=== PATIENT | female | born 1960 | race American Indian/Alaskan Native ===

== ENCOUNTER 2019-10-15 14:24 | Inpatient (IN) | payer OTHER ==
[2019-10-15 14:52] LABS: Basophils # (Auto) 0.1 K/mm3 (0.0-0.1); Basophils % (Auto) 0.8 % (0.0-1.8); Eosinophils # (Auto) 0.1 K/mm3 (0.0-0.4); Hematocrit 39.5 % (30.3-42.9); Hemoglobin 13.3 gm/dl (10.1-14.3); Lymphocytes # (Auto) 2.6 K/mm3 (1.2-5.4); Mean Corpuscular HGB Conc 34 % (30-34); Mean Corpuscular Volume 94 fl (79-97); Monocytes # (Auto) 0.5 K/mm3 (0.0-0.8); Monocytes % (Auto) 7.4 % (0.0-7.3); Platelet Count 356 K/mm3 (140-440); Red Blood Count 4.21 M/mm3 (3.65-5.03); Red Cell Distribution Width 17.6 % (13.2-15.2)
--- NOTE | 2019-10-15 14:52 | Emergency Department Report ---
ED Neuro Deficit HPI - General Chief Complaint: Neuro Symptoms/Deficit Stated Complaint: RIGHT SIDE WEAKNESS Time Seen by Provider: 10/15/19 14:33 Source: patient Mode of arrival: Wheelchair Limitations: Physical Limitation - History of Present Illness Initial Comments: [facility] Tele[facility]urology Consult Services TeleStroke Metrics: LKW: 0500 Door Time: 1424 [facility] Contacted: 1426 [facility] at Bedside: 1431 NIHSS: Decision on Alteplase: Not to give as her last known well time is greater than 4.5 hours prior to her presentation. Interventional Candidate: Not a candidate as her symptoms are not consistent with a large vessel proximal occlusion. Chief Complaint: Right-sided weakness HPI: Asked to see this patient in emergent telemedicine consultation utilizing interactive audio and video technologies. Consultation was performed with assistance of ancillary / medical staff at bedside. Verbal consent to perform the examination with telemedicine was obtained. Patient agreed to proceed with the consultation for acute stroke protocol. 59-year-old right-handed -[place] female who was brought to the emergency room by her for right-sided weakness. Patient takes a baby aspirin. She has never had a stroke or TIA before. Patient got up early this morning. Then around 5 AM, she noted having problems grabbing things with her right hand and arm. She also noted some right leg heaviness as well. She has never had symptoms like this before. She denies any associated neck pain or chest pain. No headaches. Patient checked her blood pressure later on in the day and it was elevated. She decided to come to the emergency room due to her persistent right-sided symptoms and elevated blood pressures. PMH: Hypertension and asthma SOC: Negative x3. Patient is . FMH: Negative for stroke. ROS: 13 point review of systems were reviewed with the patient, and are all negative with the exception of the aforementioned in the history of present illness. VS: Temperature 98 F, pulse 99, respirations 16, blood pressure 155/91, oxygen saturation 100% Exam: Patient is in no apparent distress. Patient appears as stated age. No obvious acute respiratory or cardiac distress. Patient is well groomed and well-nourished. 1a- LOC: Keenly responsive - 0 1b- LOC questions: Answers both questions correctly - 0 1c- LOC commands- Performs both tasks correctly- 0 2- Gaze: Normal; no gaze paresis or gaze deviation - 0 3- Visual Taylor: normal, no Visual field deficit - 0 4- Facial movements: right facial palsy - 1 5- Upper limb motor right arm drift - 1 6- Lower limb motor right leg drift - 1 7- Limb Coordination: absent ataxia - 0 8- Sensory: right sensory loss - 1 9- Language - No aphasia - 0 10- Speech - No dysarthria - 0 11- Neglect / Extinction - none found - 0 NIHSS score: 4 Diagnostic Data: CT of the head showed no acute intracranial hemorrhage, mass, or large territory stroke Medical Data Reviewed: 1.Data?reviewed include clinical labs, radiology,?and medical tests; 2.Tests?results discussed w/performing or interpreting physician; 3.Obtaining/reviewing old medical records; 4.Obtaining?case history from another source; 5.Independent?review of image, tracing, or specimen. Medical Decision Making: - Extensive number of diagnosis or management options are considered below. - Extensive amount of complex data reviewed. - High risk of complication and/or morbidity or mortality are associated with differential diagnostic considerations below. - There may be?uncertain?outcome and increased probability of prolonged functional impairment or high probability of severe prolonged functional impairment associated with some of these differential diagnosis. Differential Diagnosis for Stroke: 1.?Cardioembolic?stroke 2. Small vessel disease/lacune 3. Thromboembolic, [id number] mechanism 4.?Hypercoagulable?state-related infarct 5. Transient ischemic attack 6. Thrombotic mechanism, large artery disease Assessment: 1. Probable acute right MCA subcortical stroke 2. Hypertension 3. Asthma Recommendations: Patient can be admitted to the hospital for further work-up of her symptoms Maintain the patient on a baby aspirin. Can give her a Plavix load of 300 mg x 1, and maintain her 75 mg daily thereafter Start her on a statin as well Allow permissive hypertension Check MRI brain without contrast to rule out any acute intracranial process Check MRA of the head and neck to better evaluate her intracranial and extracranial blood vessels Check echocardiogram to gauge her cardiac function Maintain the patient on telemetry to look for paroxysmal atrial fibrillation Check hemoglobin A1c and lipid panel Consult PT, OT, and ST Continue supportive care Plan of care was discussed with the patient Thank you for allowing [facility] to participate in the care of your patient. Please call me, Dr. Tee, with any questions at [phone]. Case discussed with the ER staff and the ER provider. Critical Care notation: I was called to see this critical patient emergently. I personally evaluated this critical patient for acute stroke evaluation, and determining their eligibility for IV Alteplase and interventional therapies. I have spent approximately 14 minutes with the patient, including time at bedside, time discussing the case with other physicians, reviewing plan of care, and time independently reviewing the records and scans. - Related Data Allergies/Adverse Reactions: Allergies Allergy/AdvReac Type Severity Reaction Status Date / Time No Known Allergies Allergy Unverified 08/17/13 08:12 ED Review of Systems ROS: Stated complaint: RIGHT SIDE WEAKNESS Other details as noted in HPI ED Past Medical Hx - Past Medical History Hx Hypertension: Yes Hx Asthma: Yes - Surgical History Past Surgical History?: No ED Neuro Physical Exam - General Limitations: Physical Limitation Suspected Stroke: No ED Course Vital Signs 10/15/19 14:27 Temperature 98.0 F Pulse Rate 99 H Respiratory 16 Rate Blood Pressure 155/91 O2 Sat by Pulse 100 Oximetry Critical care attestation.: If time is entered above; I have spent that time in minutes in the direct care of this critically ill patient, excluding procedure time. ED Disposition Clinical Impression: Stroke Disposition: [id number] OP ADMIT IP TO THIS HOSP Is pt being admited?: Yes Does the pt Need Aspirin: Yes Condition: Stable
--- NOTE | 2019-10-15 14:54 | Cat Scan Report ---
NONENHANCED CT SCAN OF THE BRAIN: INDICATION: neuro deficits <6hrs or sx present upon awakening. TECHNIQUE: Routine CT head without contrast. Sagittal and coronal reformatted images were obtained. A ll CT scans at this location are performed using CT dose reduction for ALARA by means of automated ex posure control. COMPARISON: None. FINDINGS: BRAIN / INTRACRANIAL CONTENTS: Hemorrhage:No intracranial hemorrhage; no subarachnoid hemorrhage Stroke mimics: No subdural or epidural hematoma or space taking lesion Acute/subacute territorial infarction: Sylvester-white matter interface: No blurring; normal Insular cortex: Normal Basal ganglia: Normal Wedge shaped parenchymal low density area: Not present Cortical sulci: Not effaced Lacunar infarctions: None Vasculopathy: Dense middle cerebral artery sign: Not present Internal carotid artery terminus: Normal Basilar artery:Normal Middle cerebral artery branches in the sylvian fissure (Dot sign): Normal Calcified embolus: Not present ASPECT score: 10 Chronic lesions:None White matter: Periventricular and deep hemispheric white matter are normal Craniocervical junction:No significant abnormality Orbits:No significant abnormality Paranasal sinuses/mastoids: One of the left posterior ethmoid air cells is opacified; incidental oste susan in the left ethmoid labyrinth Additional findings: None IMPRESSION: No intracerebral hemorrhage No stroke mimics No CT findings to suggest acute/subacute ischemia This exam was performed as part of a code stroke protocol. The exam was completed at [facility] on 10/15/2019 1:45 PM. The exam was reviewed at 1:48 PM [place] daylight saving [place] was notified at 1:50 PM. Signer Name: Lamont Reyes MD Signed: 10/15/2019 2:50 PM Workstation Name: [id number]
[2019-10-15 15:01] LABS: INR 1.15 (0.87-1.13)
[2019-10-15 15:02] LABS: Partial Thromboplastin Time 29.8 Sec. (24.2-36.6)
[2019-10-15 15:03] LABS: Thrombin Time 16.7 Sec. (15.1-19.6)
[2019-10-15 15:05] LABS: BUN/Creatinine Ratio 10; Blood Urea Nitrogen 8 mg/dL (7-17); Calcium 9.9 mg/dL (8.4-10.2); Hemolysis Index 7
[2019-10-15] MEDS ORDERED: POTASSIUM CHLORIDE ER 20 MEQ TAB PO ONE (15:09)
--- NOTE | 2019-10-15 15:19 | Emergency Department Report ---
HPI - General Chief Complaint: Neuro Symptoms/Deficit Time Seen by Provider: 10/15/19 14:33 - HPI HPI: This is a 59-year-old female who presents to the emergency department via EMS with complaint of right-sided weakness and a "heaviness", as well as a slight right-sided facial droop, that started about 5 AM this morning. The patient says that she did realize she was having the symptoms but did not come in immediately as she thought "I do not usually get sick" and decided that maybe she just needed something to eat. However the symptoms did not improve and she eventually called 911. She denies any headache, fever, vision change, slurred speech, chest pain or shortness of breath. She has a past medical history of asthma and hypertension. She denies any tobacco use but will occasionally smoke marijuana. No recent travel or sick contacts at home. ED Past Medical Hx - Past Medical History Hx Hypertension: Yes Hx Asthma: Yes - Surgical History Past Surgical History?: No ED Review of Systems ROS: Stated complaint: RIGHT SIDE WEAKNESS Other details as noted in HPI Comment: All other systems reviewed and negative Constitutional: denies: chills, fever Eyes: denies: eye pain, vision change ENT: denies: ear pain, throat pain Respiratory: denies: cough, shortness of breath Cardiovascular: denies: chest pain, palpitations Gastrointestinal: denies: abdominal pain, vomiting Genitourinary: denies: dysuria, discharge Musculoskeletal: denies: back pain, arthralgia Skin: denies: rash, lesions Neurological: weakness, numbness Physical Exam - Physical Exam Vital Signs: Vital Signs 10/15/19 14:27 Temperature 98.0 F Pulse Rate 99 H Respiratory 16 Rate Blood Pressure 155/91 O2 Sat by Pulse 100 Oximetry Physical Exam: GENERAL: The patient is well-developed well-nourished. HENT: Normocephalic. Atraumatic. Patient has moist mucous membranes. EYES: Extraocular motions are intact. No nystagmus. NECK: Supple. Trachea is midline. CHEST/LUNGS: Clear to auscultation. There is no respiratory distress noted. HEART/CARDIOVASCULAR: Regular. There is no tachycardia. There is no murmur. ABDOMEN: Abdomen is soft, nontender. Patient has normal bowel sounds. Obese habitus. SKIN: Skin is warm and dry. NEURO: The patient is awake, alert, and oriented. The patient is cooperative. There is a mild right sided nasolabial fold paresis. There is a right upper and lower extremity drift. Mild dysarthria. MUSCULOSKELETAL: There is no tenderness or deformity. There is no evidence of acute injury. ED Course Vital Signs 10/15/19 14:27 Temperature 98.0 F Pulse Rate 99 H Respiratory 16 Rate Blood Pressure 155/91 O2 Sat by Pulse 100 Oximetry ED Medical Decision Making - Lab Data Result diagrams: 10/15/19 14:43 10/15/19 14:43 - Radiology Data Radiology results: report reviewed NONENHANCED CT SCAN OF THE BRAIN: INDICATION: neuro deficits <6hrs or sx present upon awakening. TECHNIQUE: Routine CT head without contrast. Sagittal and coronal reformatted images were obtained. All CT scans at this location are performed using CT dose reduction for ALARA by means of automated exposure control. COMPARISON: None. FINDINGS: BRAIN / INTRACRANIAL CONTENTS: Hemorrhage:No intracranial hemorrhage; no subarachnoid hemorrhage Stroke mimics: No subdural or epidural hematoma or space taking lesion Acute/subacute territorial infarction: Sylvester-white matter interface: No blurring; normal Insular cortex: Normal Basal ganglia: Normal Wedge shaped parenchymal low density area: Not present Cortical sulci: Not effaced Lacunar infarctions: None Vasculopathy: Dense middle cerebral artery sign: Not present Internal carotid artery terminus: Normal Basilar artery:Normal Middle cerebral artery branches in the sylvian fissure (Dot sign): Normal Calcified embolus: Not present ASPECT score: 10 Chronic lesions:None White matter: Periventricular and deep hemispheric white matter are normal Craniocervical junction:No significant abnormality Orbits:No significant abnormality Paranasal sinuses/mastoids: One of the left posterior ethmoid air cells is opacified; incidental osteoma in the left ethmoid labyrinth Additional findings: None IMPRESSION: No intracerebral hemorrhage No stroke mimics No CT findings to suggest acute/subacute ischemia - Medical Decision Making This patient presents with some right-sided weakness and right-sided facial droop that started around 5 AM this morning. The patient delayed coming into the emergency department and by the time she did she was outside of the TPA window. A code stroke was still initiated and the patient had a CT scan of the head without contrast that did not show any hemorrhage or evidence of a large vessel occlusion. The patient was seen by the telemedicine neurologist immediately upon return from CT imaging. The patient was given an NIH stroke score of 4. They recommended admission but did not require CT angiography studies of the head and neck at this time. For neurology's full recommendations please see their consult. Patient's labs have been mostly unremarkable including CBC, metabolic panel, troponin and coags. Vital signs have been reassuring throughout her ED course thus far. The patient will be admitted to the hospital for further evaluation and treatment and was accepted for admission by the hospitalist, Dr. Rios. Critical Care Time: Yes Critical care time in (mins) excluding proc time.: 35 Critical care attestation.: If time is entered above; I have spent that time in minutes in the direct care of this critically ill patient, excluding procedure time. Critical care time is spent on this patient in doing her initial evaluation, multiple re-evaluations, ordering and interpretation of labs and imaging, discussion with the neurology service, and multiple discussions with the patient. Critical Care Time: 35 minutes ED Disposition Clinical Impression: Stroke Qualifiers: CVA mechanism: unspecified Qualified Code(s): I63.9 - Cerebral infarction, unspecified Hypertension Qualifiers: Hypertension type: essential hypertension Qualified Code(s): I10 - Essential (primary) hypertension Disposition: 09 OP ADMIT IP TO THIS HOSP Is pt being admited?: Yes Condition: Serious Time of Disposition: 19:23
[2019-10-15] MEDS ORDERED: ASPIRIN 81 MG TAB CHEW PO ONE (15:45)
--- NOTE | 2019-10-15 16:37 | History and Physical Report ---
History of Present Illness Chief complaint: I felt weak on my right side History of present illness: 59 YO Female with Obesity Hypoventilation Syndrome, HTN, Asthma presents to ED for evaluation. Patient states that she was in her usual state of health at bedtime which was around 2100 hrs. Patient states that she awoke from sleep at approximately 0500 hrs. this morning. Patient states that upon awakening she experienced right arm and leg weakness, right-sided facial droop, slurred speech. Patient states that she decided to get something to eat and wait for the symptoms to resolve. Patient states that symptoms persisted for several hours. Patient subsequently transported to EMS via private vehicle for care and evaluation of the aforementioned symptoms. Patient seen and evaluated in the emergency department. Lab and image studies reviewed. Patient found to have symptoms consistent with acute CVA. Patient is outside the therapeutic window for TPA. Tele-neurology was consulted. Patient placed in observation status and admitted to medical floor for further evaluation and care. Patient initiated on CVA protocol. Patient denies fever, chills, chest pain, palpitations, productive cough, trauma, sick recent ill contacts. Or known exposure to COVID-19. No prior admission for review. No medication listed at time of admission for reconciliation. Advanced care planning conducted in the emergency department. Case management consulted for discharge planning. Past History Past Medical History: hypertension, other (See HPI) Past Surgical History: No surgical history Social history: . denies: smoking, alcohol abuse, prescription drug abuse Family history: diabetes, hypertension Medications and Allergies Allergies Allergy/AdvReac Type Severity Reaction Status Date / Time No Known Allergies Allergy Unverified 08/17/13 08:12 Review of Systems Constitutional: no weight loss, no weight gain, no chills Ears, nose, mouth and throat: no ear pain, no ear discharge, no decreased hearing Breasts: no change in shape, no swelling, no mass Cardiovascular: no chest pain, no palpitations, no syncope, no lightheadedness Respiratory: no cough, no excessive sputum, no hemoptysis, no shortness of breath Gastrointestinal: no abdominal pain, no nausea, no diarrhea Genitourinary Female: no pelvic pain, no flank pain, no menorrhagia, no dysuria, no urinary frequency, no urgency Rectal: no pain, no incontinence, no bleeding Musculoskeletal: no neck stiffness, no shooting arm pain, no arm numbness/tingling, no low back pain, no shooting leg pain Integumentary: no rash, no pruritis, no redness, no sores, no wounds Neurological: weakness, lack of coordination, change in speech, gait dysfunction, motor disturbance, no tingling, no seizures, no syncope, no memory loss, no double vision, no hearing difficulties Psychiatric: no anxiety, no memory loss, no change in sleep habits, no hypersomnia, no change in appetite Endocrine: no cold intolerance, no heat intolerance, no polyphagia, no nocturia Hematologic/Lymphatic: no easy bruising Allergic/Immunologic: no wheezing Exam - Constitutional Vitals: Temp Pulse Resp BP Pulse Ox 98.0 F 88 16 155/91 100 10/15/19 14:27 10/15/19 15:22 10/15/19 14:27 10/15/19 14:27 10/15/19 14:27 General appearance: Present: mild distress - EENT Eyes: Present: PERRL ENT: hearing intact, clear oral mucosa - Neck Neck: Present: supple, normal ROM - Respiratory Respiratory effort: normal Respiratory: bilateral: CTA - Cardiovascular Heart Sounds: Present: S1 & S2. Absent: rub, click - Extremities Extremities: pulses symmetrical, No edema Peripheral Pulses: within normal limits - Abdominal General gastrointestinal: Present: soft, non-tender, non-distended, normal bowel sounds Female genitourinary: Present: normal - Integumentary Integumentary: Present: clear, warm, dry - Musculoskeletal Musculoskeletal: right sided weakness - Psychiatric Psychiatric: appropriate mood/affect, intact judgment & insight - Neurologic Neurologic: CNII-XII intact, moves all extremities HEART Score - HEART Score Troponin: Troponin T < 0.010 ng/mL (0.00-0.029) 10/15/19 14:43 Results - Labs CBC & Chem 7: 10/15/19 14:43 10/15/19 14:43 Labs: Abnormal lab results 10/15/19 10/15/19 10/15/19 Range/Units 14:43 14:43 14:43 RDW 17.6 H (13.2-15.2) % Lymph % (Auto) 36.0 H (13.4-35.0) % [place] % (Auto) 7.4 H (0.0-7.3) % INR 1.15 H (0.87-1.13) Potassium 3.0 L (3.6-5.0) mmol/L Glucose 140 H (65-100) mg/dL POC Glucose (70-105) 10/15/19 Range/Units 14:44 RDW (13.2-15.2) % Lymph % (Auto) (13.4-35.0) % [place] % (Auto) (0.0-7.3) % INR (0.87-1.13) Potassium (3.6-5.0) mmol/L Glucose (65-100) mg/dL POC Glucose 160 H (70-105) Assessment and Plan - Patient Problems (1) CVA (cerebral vascular accident) Current Visit: Yes Status: Acute Qualifiers: Precerebral and cerebral artery: middle cerebral artery Laterality of affected vessel: right Plan to address problem: Stroke protocol: CT head, neuro check, physical therapy, Occupational Therapy, speech therapy, echocardiogram, carotid Doppler, antiplatelet therapy, tele- neurology consulted. (2) Obesity hypoventilation syndrome Current Visit: Yes Status: Acute Plan to address problem: Supplemental oxygen, pulse oximetry, pulmonary toilet, CPAP nightly. (3) Hypertension Current Visit: Yes Status: Acute Qualifiers: Hypertension type: essential hypertension Qualified Code(s): I10 - Essential (primary) hypertension Plan to address problem: Permissive hypertension overnight, monitor blood pressure every shift. (4) DVT prophylaxis Current Visit: Yes Status: Acute Plan to address problem: SCD to bilateral lower extremities while in bed. (5) Advance care planning Current Visit: Yes Status: Acute Plan to address problem: Disease education conducted, patient is full code, prognosis discussed, patient acknowledges understanding and agreement with care plan, +30 minutes
[2019-10-15] MEDS ORDERED: METOCLOPRAMIDE 10 MG TAB PO PRN (16:43)
[2019-10-15] MEDS ORDERED: MAGNESIUM HYDROXIDE (MOM) ORAL LIQD UDC PO PRN (16:43)
[2019-10-15] MEDS ORDERED: ONDANSETRON 4 MG/2 ML INJ IV PRN (16:43)
[2019-10-15] MEDS ORDERED: ACETAMINOPHEN 325 MG TAB PO PRN (16:43)
[2019-10-15] MEDS ORDERED: PROMETHAZINE 25 MG RECT SUPP PR PRN (16:43)
[2019-10-16] MEDS: ASPIRIN 325 MG TAB PO SCH (11:28)
--- NOTE | 2019-10-16 12:57 | Discharge Summary ---
Providers - Providers Date of Admission: 10/15/19 16:43 Attending physician: KEIKO HARVEY 10/15/19 16:43 Occupational Therapy Evaluate and Treat [CONS] Routine Comment: Reason For Exam: Neuro deficits Physical Therapy Evaluation and Treat [CONS] Routine Comment: Reason For Exam: Neuro deficits Primary care physician: NEUROPATHOLOGIST Hospitalization Condition: Serious - Discharge Diagnoses (1) CVA (cerebral vascular accident) Status: Acute Qualifiers: Precerebral and cerebral artery: middle cerebral artery Laterality of affected vessel: right (2) Obesity hypoventilation syndrome Status: Acute (3) Hypertension Status: Acute Qualifiers: Hypertension type: essential hypertension Qualified Code(s): I10 - Essential (primary) hypertension (4) DVT prophylaxis Status: Acute (5) Advance care planning Status: Acute Exam - Constitutional Vitals: Temp Pulse Resp BP Pulse Ox 98.0 F 72 20 172/95 99 10/16/19 11:31 10/16/19 11:31 10/16/19 11:31 10/16/19 11:31 10/16/19 11:31 Plan Activity: advance as tolerated Follow up with: PRIMARY MD SETH [Primary Care Provider] - 7 Days Prescriptions: AtorvaSTATin [Lipitor] 40 mg PO QHS #30 tablet
--- NOTE | 2019-10-16 16:33 | Vascular Lab Report ---
VL carotid duplex BILAT INDICATION / CLINICAL INFORMATION: stroke COMPARISON: None available. FINDINGS: RIGHT CAROTID: - CCA velocity: 95 cm/sec. - ICA peak systolic velocity: 68 cm/sec. - ICA/CCA PSV Ratio: Less than 2 Right Vertebral Artery: Antegrade flow. LEFT CAROTID: - CCA velocity: 94 cm/sec. - ICA peak systolic velocity: 72 cm/sec. - ICA/CCA PSV Ratio: Less than 2 Left Vertebral Artery: Antegrade flow. IMPRESSION: 1. No occlusion or hemodynamically significant stenosis of the bilateral carotid arteries. Velocity criteria are extrapolated from diameter data as defined by the Society of Radiologists in Ul trasound Consensus Conference, Radiology 2003; 229;340-346. NO STENOSIS (NORMAL) * Plaque = none; ICA PSV < 125 cm/sec; ICA/CCA PSV Ratio < 2.0 <50% STENOSIS * Plaque < 50%; ICA PSV < 125 cm/sec; ICA/CCA PSV Ratio < 2.0 50-69% STENOSIS * Plaque > 50%; ICA PSV = 125-230 cm/sec; ICA/CCA PSV Ratio = 2.0-4.0 >70% BUT <100% STENOSIS * Plaque > 50%; ICA PSV < 230 cm/sec; ICA/CCA PSV Ratio > 4.0 NEAR OCCLUSION * Plaque = visible lumen; ICA PSV = high/low/none; ICA/CCA PSV Ratio = variable TOTAL OCCLUSION * Plaque = no lumen; ICA PSV = none; ICA/CCA PSV Ratio = N/A Signer Name: Yovani Bettencourt MD Signed: 10/16/2019 4:28 PM Workstation Name: [id number]
[2019-10-17] MEDS: ASPIRIN 325 MG TAB PO SCH (09:50)
--- NOTE | 2019-10-17 12:53 | Progress Note ---
Assessment and Plan - Patient Problems (1) CVA (cerebral vascular accident) Current Visit: Yes Status: Acute Qualifiers: Precerebral and cerebral artery: middle cerebral artery Laterality of affected vessel: right Plan to address problem: Stroke protocol: CT head, neuro check, physical therapy, Occupational Therapy, speech therapy, echocardiogram, carotid Doppler, antiplatelet therapy, tele-n eurology consulted. DC planning to acute rehab. Case management consulted for assistance with discharge planning and placement. (2) Obesity hypoventilation syndrome Current Visit: Yes Status: Acute Plan to address problem: Supplemental oxygen, pulse oximetry, pulmonary toilet, CPAP nightly. (3) Hypertension Current Visit: Yes Status: Acute Qualifiers: Hypertension type: essential hypertension Qualified Code(s): I10 - Essential (primary) hypertension Plan to address problem: Permissive hypertension overnight, monitor blood pressure every shift. (4) DVT prophylaxis Current Visit: Yes Status: Acute Plan to address problem: SCD to bilateral lower extremities while in bed. (5) Advance care planning Current Visit: Yes Status: Acute Plan to address problem: Disease education conducted, patient is full code, prognosis discussed, patient acknowledges understanding and agreement with care plan, +30 minutes History Interval history: 59 YO Female HD #2 with CVA complicated by RHP, Obesity Hypoventilation Syndr ome, HTN, Asthma. Patient resting comfortably in bed. 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 Patient denies pain. No reported nursing events. Hospitalist Physical - Constitutional Vitals: Temp Pulse Resp BP Pulse Ox 97.5 F L 71 20 175/90 94 10/17/19 05:13 10/17/19 05:13 10/17/19 05:13 10/17/19 06:37 10/17/19 08:35 General appearance: Present: mild distress, obese - EENT Eyes: Present: PERRL, EOM intact ENT: hearing intact - Neck Neck: Present: normal ROM - Respiratory Respiratory effort: normal Respiratory: bilateral: CTA - Cardiovascular Rhythm: regular Heart Sounds: Present: S1 & S2 - Extremities Extremities: no ischemia Peripheral Pulses: within normal limits - Abdominal General gastrointestinal: soft, non-tender, non-distended - Integumentary Integumentary: Present: clear, dry - Psychiatric Psychiatric: appropriate mood/affect, cooperative - Neurologic Neurologic: no CNII-XII intact, focal deficits, no moves all extremities, no gait normal HEART Score - HEART Score Troponin: Troponin T < 0.010 ng/mL (0.00-0.029) 10/15/19 14:43 Results - Labs CBC & Chem 7: 10/15/19 14:43 10/15/19 14:43 Labs: Laboratory Last Values WBC 7.3 K/mm3 (4.5-11.0) 10/15/19 14:43 RBC 4.21 M/mm3 (3.65-5.03) 10/15/19 14:43 Hgb 13.3 gm/dl (10.1-14.3) 10/15/19 14:43 Hct 39.5 % (30.3-42.9) 10/15/19 14:43 MCV 94 fl (79-97) 10/15/19 14:43 MCH 32 pg (28-32) 10/15/19 14:43 MCHC 34 % (30-34) 10/15/19 14:43 RDW 17.6 % (13.2-15.2) H 10/15/19 14:43 Plt Count 356 K/mm3 (140-440) 10/15/19 14:43 Lymph % (Auto) 36.0 % (13.4-35.0) H 10/15/19 14:43 [place] % (Auto) 7.4 % (0.0-7.3) H 10/15/19 14:43 Eos % (Auto) 1.0 % (0.0-4.3) 10/15/19 14:43 Baso % (Auto) 0.8 % (0.0-1.8) 10/15/19 14:43 Lymph # 2.6 K/mm3 (1.2-5.4) 10/15/19 14:43 [place] # 0.5 K/mm3 (0.0-0.8) 10/15/19 14:43 Eos # 0.1 K/mm3 (0.0-0.4) 10/15/19 14:43 Baso # 0.1 K/mm3 (0.0-0.1) 10/15/19 14:43 Seg Neutrophils % 54.8 % (40.0-70.0) 10/15/19 14:43 Seg Neutrophils # 4.0 K/mm3 (1.8-7.7) 10/15/19 14:43 PT 14.9 Sec. (12.2-14.9) 10/15/19 14:43 INR 1.15 (0.87-1.13) H 10/15/19 14:43 APTT 29.8 Sec. (24.2-36.6) 10/15/19 14:43 Thrombin Time 16.7 Sec. (15.1-19.6) 10/15/19 14:43 Sodium 140 mmol/L (137-145) 10/15/19 14:43 Potassium 3.0 mmol/L (3.6-5.0) L 10/15/19 14:43 Chloride 98.1 mmol/L (98-107) 10/15/19 14:43 Carbon Dioxide 26 mmol/L (22-30) 10/15/19 14:43 Anion Gap 19 mmol/L 10/15/19 14:43 BUN 8 mg/dL (7-17) 10/15/19 14:43 Creatinine 0.8 mg/dL (0.6-1.2) 10/15/19 14:43 Estimated GFR > 60 ml/min 10/15/19 14:43 BUN/Creatinine Ratio 10 % 10/15/19 14:43 Glucose 140 mg/dL (65-100) H 10/15/19 14:43 POC Glucose 98 (70-105) 10/16/19 22:14 Calcium 9.9 mg/dL (8.4-10.2) 10/15/19 14:43 Troponin T < 0.010 ng/mL (0.00-0.029) 10/15/19 14:43 - Diagnostic Impressions Diagnostic Impressions: Echocardiogram 10/15/19 16:44 Transthoracic Echocardiogram Indication: Stroke BP: 168/95 Conclusions *The study quality is technically difficult. *Global left ventricular systolic function is normal. *The estimated ejection fraction is 55-60%. *Mild concentric left ventricular hypertrophy is observed. *There is trace of mitral regurgitation. *There is mild tricuspid regurgitation. *A patent foramen ovale is not demonstrated by agitated saline contrast. Findings Procedure Info: The study quality is technically difficult. Left Ventricle: The left ventricular chamber size is normal. Mild concentric left ventricular hypertrophy is observed. Global left ventricular systolic function is normal. The estimated ejection fraction is 55-60%. Left Atrium: The left atrial chamber size is normal. Right Ventricle: The right ventricular cavity size is normal. Right Atrium: The right atrial cavity size is normal. A patent foramen ovale is not demonstrated by agitated saline contrast. Aortic Valve: The aortic valve leaflets are mildly thickened. There is no evidence of aortic regurgitation. There is no evidence of aortic stenosis. Mitral Valve: The mitral valve leaflets are mildly thickened. There is trace of mitral regurgitation. There is no evidence of mitral stenosis. Tricuspid Valve: There is mild tricuspid regurgitation. No pulmonary hypertension is noted. Pulmonic Valve: There is mild pulmonic regurgitation. Pericardium: There is no pericardial effusion. Aorta: There is no dilatation of the ascending aorta. There is no dilatation of the aortic root. Venous: The inferior vena cava appears normal in size. Contrast: Intravenous agitated saline contrast was used to assess intracardiac shunting. Measurements Chambers 2D Name Value Normal Range IVSd (2D) 1.38 cm (0.6 - 1.1) LVPWd (2D) 1.13 cm (0.6 - 1.1) LVIDd (2D) 4.8 cm (3.7 - 5.6) LVIDs (2D) 3.23 cm (2 - 3.8) LV FS (2D) 32.66 % - EF Teichholz (2D) 60.96 % - Ao root diameter (2D) 2.6 cm (2 - 3.7) Volumes/Mass Name Value Normal Range LA ESV SP 4CH (A/L) 46.18 ml - LA ESV SP 2CH (A/L) 49.39 ml - LA ESV BP (A/L) 49.48 ml - LA ESV BP (A/L) index 22.59 ml/m2 - LA ESV SP 4CH (MOD) 44.36 ml - LA ESV SP 2CH (MOD) 47.17 ml - LA ESV BP (MOD) 46.99 ml - LA ESV BP (MOD) index 21.45 ml/m2 - LV EDV SP 4CH (MOD) 71.66 ml - LV ESV SP 4CH (MOD) 29.98 ml - EF SP 4CH (MOD) 58.17 % - LV EDV SP 2CH (MOD) 81.67 ml - LV ESV SP 2CH (MOD) 31.9 ml - EF SP 2CH (MOD) 60.94 % - LV EDV BP 80.76 ml - LV ESV BP 32.62 ml - BP EF (MOD) 59.61 % - Diastolic/Systolic Function Name Value Normal Range MV E-wave Vmax 0.66 m/sec - MV deceleration time 286.4 msec - MV A-wave Vmax 0.99 m/sec - MV E:A ratio 0.67 ratio - Aortic Valve Name Value Normal Range AV Vmax 1.68 m/sec - AV VTI 33.8 cm - AV peak gradient 11.32 mmHg - AV mean gradient 6.11 mmHg - LVOT diameter 2.06 cm - LVOT Vmax 0.87 m/sec - LVOT VTI 20.22 cm - LVOT peak gradient 3.02 mmHg - LVOT mean gradient 1.63 mmHg - SV LVOT 67.66 ml - INDIRA (continuity Vmax) 1.73 cm2 - INDIRA (continuity VTI) 2 cm2 - Ascending Ao 3.45 cm - Tricuspid Valve Name Value Normal Range TV E-wave Vmax 0.58 m/sec - Pulmonic Valve/Qp:Qs Name Value Normal Range PV Vmax 1.19 m/sec - PV peak gradient 5.65 mmHg - PA end-diastolic Vmax 0.89 m/sec - PV acceleration time 95.15 msec - Yadav/IV: Voiding Method Toilet IV Catheter Type [Right INT / Saline Lock Antecubital] Active Medications - Current Medications Current Medications: Generic Name Dose Route Start Last Admin Trade Name Freq PRN Reason Stop Dose Admin Acetaminophen 650 mg 10/15/19 16:43 Tylenol PO Q4H PRN Pain, Mild (1-3) Amlodipine Besylate 10 mg 10/18/19 10:00 Amlodipine PO QDAY LILIA Aspirin 325 mg 10/16/19 10:00 10/17/19 09:50 Aspirin PO 325 mg QDAY LILIA Administration Atorvastatin Calcium 40 mg 10/15/19 22:00 10/16/19 21:49 Lipitor PO 40 mg QHS LILIA Administration Bisacodyl 10 mg 10/15/19 16:43 Dulcolax PA QDAY PRN Constipation Magnesium Hydroxide 30 ml 10/15/19 16:43 Milk Of Magnesia PO Q4H PRN Constipation Metoclopramide HCl 10 mg 10/15/19 16:43 Reglan PO Q6H PRN Nausea And Vomiting Ondansetron HCl 4 mg 10/15/19 16:43 Zofran IV Q8H PRN Nausea And Vomiting Promethazine HCl 25 mg 10/15/19 16:43 Phenergan PA Q6H PRN Nausea And Vomiting
--- NOTE | 2019-10-17 19:58 | Progress Note ---
Assessment and Plan - Patient Problems (1) CVA (cerebral vascular accident) Current Visit: Yes Status: Acute Qualifiers: Precerebral and cerebral artery: middle cerebral artery Laterality of affected vessel: right Plan to address problem: Stroke protocol: CT head reviewed, neuro check, physical therapy, Occupational Therapy, speech therapy, echocardiogram reviewed, carotid Doppler reviewed, d ouble antiplatelet therapy, tele-neurology consulted. DC planning to acute rehab. Case management consulted for assistance with discharge planning and placement. (2) Obesity hypoventilation syndrome Current Visit: Yes Status: Acute Plan to address problem: Supplemental oxygen, pulse oximetry, pulmonary toilet, CPAP nightly. (3) Hypertension Current Visit: Yes Status: Acute Qualifiers: Hypertension type: essential hypertension Qualified Code(s): I10 - Essential (primary) hypertension Plan to address problem: Permissive hypertension overnight, monitor blood pressure every shift. (4) DVT prophylaxis Current Visit: Yes Status: Acute Plan to address problem: SCD to bilateral lower extremities while in bed. (5) Advance care planning Current Visit: Yes Status: Acute Plan to address problem: Disease education conducted, patient is full code, prognosis discussed, patient acknowledges understanding and agreement with care plan, +30 minutes History Interval history: 59 YO Female HD #3 with CVA complicated by RHP, Obesity Hypoventilation Syndrome, HTN, Asthma. Patient resting comfortably in bed. Patient ac knowledges persistent right upper extremity weakness. Patient denies pain. Patient medically optimized. No reported nursing events. Case management consulted for discharge planning and assistance with discharge. Hospitalist Physical - Constitutional Vitals: Temp Pulse Resp BP Pulse Ox 97.9 F 72 20 178/99 97 10/17/19 17:09 10/17/19 17:09 10/17/19 17:09 10/17/19 17:10/17/19 17:09 General appearance: Present: mild distress, obese - EENT Eyes: Present: PERRL, EOM intact ENT: hearing intact - Neck Neck: Present: supple - Respiratory Respiratory effort: normal Respiratory: bilateral: CTA - Cardiovascular Rhythm: regular Heart Sounds: Present: S1 & S2 - Extremities Extremities: no ischemia Peripheral Pulses: within normal limits - Abdominal General gastrointestinal: soft, non-tender, non-distended - Integumentary Integumentary: Present: clear, erythema - Psychiatric Psychiatric: appropriate mood/affect, cooperative - Neurologic Neurologic: no CNII-XII intact, focal deficits, no moves all extremities, no gait normal HEART Score - HEART Score Troponin: Troponin T < 0.010 ng/mL (0.00-0.029) 10/15/19 14:43 Results - Labs CBC & Chem 7: 10/15/19 14:43 10/15/19 14:43 Labs: Laboratory Last Values WBC 7.3 K/mm3 (4.5-11.0) 10/15/19 14:43 RBC 4.21 M/mm3 (3.65-5.03) 10/15/19 14:43 Hgb 13.3 gm/dl (10.1-14.3) 10/15/19 14:43 Hct 39.5 % (30.3-42.9) 10/15/19 14:43 MCV 94 fl (79-97) 10/15/19 14:43 MCH 32 pg (28-32) 10/15/19 14:43 MCHC 34 % (30-34) 10/15/19 14:43 RDW 17.6 % (13.2-15.2) H 10/15/19 14:43 Plt Count 356 K/mm3 (140-440) 10/15/19 14:43 Lymph % (Auto) 36.0 % (13.4-35.0) H 10/15/19 14:43 [place] % (Auto) 7.4 % (0.0-7.3) H 10/15/19 14:43 Eos % (Auto) 1.0 % (0.0-4.3) 10/15/19 14:43 Baso % (Auto) 0.8 % (0.0-1.8) 10/15/19 14:43 Lymph # 2.6 K/mm3 (1.2-5.4) 10/15/19 14:43 [place] # 0.5 K/mm3 (0.0-0.8) 10/15/19 14:43 Eos # 0.1 K/mm3 (0.0-0.4) 10/15/19 14:43 Baso # 0.1 K/mm3 (0.0-0.1) 10/15/19 14:43 Seg Neutrophils % 54.8 % (40.0-70.0) 10/15/19 14:43 Seg Neutrophils # 4.0 K/mm3 (1.8-7.7) 10/15/19 14:43 PT 14.9 Sec. (12.2-14.9) 10/15/19 14:43 INR 1.15 (0.87-1.13) H 10/15/19 14:43 APTT 29.8 Sec. (24.2-36.6) 10/15/19 14:43 Thrombin Time 16.7 Sec. (15.1-19.6) 10/15/19 14:43 Sodium 140 mmol/L (137-145) 10/15/19 14:43 Potassium 3.0 mmol/L (3.6-5.0) L 10/15/19 14:43 Chloride 98.1 mmol/L (98-107) 10/15/19 14:43 Carbon Dioxide 26 mmol/L (22-30) 10/15/19 14:43 Anion Gap 19 mmol/L 10/15/19 14:43 BUN 8 mg/dL (7-17) 10/15/19 14:43 Creatinine 0.8 mg/dL (0.6-1.2) 10/15/19 14:43 Estimated GFR > 60 ml/min 10/15/19 14:43 BUN/Creatinine Ratio 10 % 10/15/19 14:43 Glucose 140 mg/dL (65-100) H 10/15/19 14:43 POC Glucose 98 (70-105) 10/16/19 22:14 Calcium 9.9 mg/dL (8.4-10.2) 10/15/19 14:43 Troponin T < 0.010 ng/mL (0.00-0.029) 10/15/19 14:43 - Diagnostic Impressions Diagnostic Impressions: Echocardiogram 10/15/19 16:44 Transthoracic Echocardiogram Indication: Stroke BP: 168/95 Conclusions *The study quality is technically difficult. *Global left ventricular systolic function is normal. *The estimated ejection fraction is 55-60%. *Mild concentric left ventricular hypertrophy is observed. *There is trace of mitral regurgitation. *There is mild tricuspid regurgitation. *A patent foramen ovale is not demonstrated by agitated saline contrast. Findings Procedure Info: The study quality is technically difficult. Left Ventricle: The left ventricular chamber size is normal. Mild concentric left ventricular hypertrophy is observed. Global left ventricular systolic function is normal. The estimated ejection fraction is 55-60%. Left Atrium: The left atrial chamber size is normal. Right Ventricle: The right ventricular cavity size is normal. Right Atrium: The right atrial cavity size is normal. A patent foramen ovale is not demonstrated by agitated saline contrast. Aortic Valve: The aortic valve leaflets are mildly thickened. There is no evidence of aortic regurgitation. There is no evidence of aortic stenosis. Mitral Valve: The mitral valve leaflets are mildly thickened. There is trace of mitral regurgitation. There is no evidence of mitral stenosis. Tricuspid Valve: There is mild tricuspid regurgitation. No pulmonary hypertension is noted. Pulmonic Valve: There is mild pulmonic regurgitation. Pericardium: There is no pericardial effusion. Aorta: There is no dilatation of the ascending aorta. There is no dilatation of the aortic root. Venous: The inferior vena cava appears normal in size. Contrast: Intravenous agitated saline contrast was used to assess intracardiac shunting. Measurements Chambers 2D Name Value Normal Range IVSd (2D) 1.38 cm (0.6 - 1.1) LVPWd (2D) 1.13 cm (0.6 - 1.1) LVIDd (2D) 4.8 cm (3.7 - 5.6) LVIDs (2D) 3.23 cm (2 - 3.8) LV FS (2D) 32.66 % - EF Teichholz (2D) 60.96 % - Ao root diameter (2D) 2.6 cm (2 - 3.7) Volumes/Mass Name Value Normal Range LA ESV SP 4CH (A/L) 46.18 ml - LA ESV SP 2CH (A/L) 49.39 ml - LA ESV BP (A/L) 49.48 ml - LA ESV BP (A/L) index 22.59 ml/m2 - LA ESV SP 4CH (MOD) 44.36 ml - LA ESV SP 2CH (MOD) 47.17 ml - LA ESV BP (MOD) 46.99 ml - LA ESV BP (MOD) index 21.45 ml/m2 - LV EDV SP 4CH (MOD) 71.66 ml - LV ESV SP 4CH (MOD) 29.98 ml - EF SP 4CH (MOD) 58.17 % - LV EDV SP 2CH (MOD) 81.67 ml - LV ESV SP 2CH (MOD) 31.9 ml - EF SP 2CH (MOD) 60.94 % - LV EDV BP 80.76 ml - LV ESV BP 32.62 ml - BP EF (MOD) 59.61 % - Diastolic/Systolic Function Name Value Normal Range MV E-wave Vmax 0.66 m/sec - MV deceleration time 286.4 msec - MV A-wave Vmax 0.99 m/sec - MV E:A ratio 0.67 ratio - Aortic Valve Name Value Normal Range AV Vmax 1.68 m/sec - AV VTI 33.8 cm - AV peak gradient 11.32 mmHg - AV mean gradient 6.11 mmHg - LVOT diameter 2.06 cm - LVOT Vmax 0.87 m/sec - LVOT VTI 20.22 cm - LVOT peak gradient 3.02 mmHg - LVOT mean gradient 1.63 mmHg - SV LVOT 67.66 ml - INDIRA (continuity Vmax) 1.73 cm2 - INDIRA (continuity VTI) 2 cm2 - Ascending Ao 3.45 cm - Tricuspid Valve Name Value Normal Range TV E-wave Vmax 0.58 m/sec - Pulmonic Valve/Qp:Qs Name Value Normal Range PV Vmax 1.19 m/sec - PV peak gradient 5.65 mmHg - TN end-diastolic Vmax 0.89 m/sec - PV acceleration time 95.15 msec - Yadav/IV: Voiding Method Toilet IV Catheter Type [Right INT / Saline Lock Antecubital] Active Medications - Current Medications Current Medications: Generic Name Dose Route Start Last Admin Trade Name Freq PRN Reason Stop Dose Admin Acetaminophen 650 mg 10/15/19 16:43 Tylenol PO Q4H PRN Pain, Mild (1-3) Amlodipine Besylate 10 mg 10/18/19 10:00 Amlodipine PO QDAY LILIA Aspirin 325 mg 10/16/19 10:00 10/17/19 09:50 Aspirin PO 325 mg QDAY LILIA Administration Atorvastatin Calcium 40 mg 10/15/19 22:00 10/16/19 21:49 Lipitor PO 40 mg QHS LILIA Administration Bisacodyl 10 mg 10/15/19 16:43 Dulcolax [place] QDAY PRN Constipation Magnesium Hydroxide 30 ml 10/15/19 16:43 Milk Of Magnesia PO Q4H PRN Constipation Metoclopramide HCl 10 mg 10/15/19 16:43 Reglan PO Q6H PRN Nausea And Vomiting Ondansetron HCl 4 mg 10/15/19 16:43 Zofran IV Q8H PRN Nausea And Vomiting Promethazine HCl 25 mg 10/15/19 16:43 Phenergan [place] Q6H PRN Nausea And Vomiting
[2019-10-17] MEDS ORDERED: amLODIPine 10 MG TAB PO ONE (23:12)
[2019-10-18] MEDS ORDERED: hydrALAZINE 20 MG/1 ML INJ IV ONE (09:09)
[2019-10-18] MEDS: amLODIPine 10 MG TAB PO SCH (10:42)
[2019-10-18] MEDS: ASPIRIN 325 MG TAB PO SCH (10:43)
--- NOTE | 2019-10-18 20:37 | Progress Note ---
Assessment and Plan - Patient Problems (1) CVA (cerebral vascular accident) Current Visit: Yes Status: Acute Qualifiers: Precerebral and cerebral artery: middle cerebral artery Laterality of affected vessel: right Plan to address problem: Stroke protocol: CT head reviewed, neuro check, physical therapy, Occupational Therapy, speech therapy, echocardiogram reviewed, carotid Doppler reviewed, d ouble antiplatelet therapy, tele-neurology consulted. DC planning to acute rehab. Case management consulted for assistance with discharge planning and placement. (2) Obesity hypoventilation syndrome Current Visit: Yes Status: Acute Plan to address problem: Supplemental oxygen, pulse oximetry, pulmonary toilet, CPAP nightly. (3) Hypertension Current Visit: Yes Status: Acute Qualifiers: Hypertension type: essential hypertension Qualified Code(s): I10 - Essential (primary) hypertension Plan to address problem: Permissive hypertension overnight, monitor blood pressure every shift. (4) DVT prophylaxis Current Visit: Yes Status: Acute Plan to address problem: SCD to bilateral lower extremities while in bed. (5) Advance care planning Current Visit: Yes Status: Acute Plan to address problem: Disease education conducted, patient is full code, prognosis discussed, patient acknowledges understanding and agreement with care plan, +30 minutes History Interval history: 59 YO Female HD #4 with CVA complicated by RHP, Obesity Hypoventilation Syndrome, HTN, Asthma. Patient resting comfortably in bed. Patient denies any new a.m. complaints. Patient denies pain. Patient medically optimized. No reported nursing events. Case management consulted for discharge planning and assistance with discharge. Hospitalist Physical - Constitutional Vitals: Temp Pulse Resp BP Pulse Ox 97.5 F L 75 20 144/94 95 10/18/19 16:24 10/18/19 16:24 10/18/19 16:24 10/18/19 16:24 10/18/19 16:24 General appearance: Present: mild distress, obese - EENT Eyes: Present: PERRL, EOM intact ENT: hearing intact - Neck Neck: Present: supple - Respiratory Respiratory effort: normal Respiratory: bilateral: CTA - Cardiovascular Rhythm: regular Heart Sounds: Present: S1 & S2 - Extremities Extremities: no ischemia Peripheral Pulses: within normal limits - Abdominal General gastrointestinal: soft, non-tender, non-distended - Integumentary Integumentary: Present: clear, dry - Psychiatric Psychiatric: appropriate mood/affect, cooperative - Neurologic Neurologic: no CNII-XII intact, focal deficits, no moves all extremities, no gait normal HEART Score - HEART Score Troponin: Troponin T < 0.010 ng/mL (0.00-0.029) 10/15/19 14:43 Results - Labs CBC & Chem 7: 10/15/19 14:43 10/15/19 14:43 Labs: Laboratory Last Values WBC 7.3 K/mm3 (4.5-11.0) 10/15/19 14:43 RBC 4.21 M/mm3 (3.65-5.03) 10/15/19 14:43 Hgb 13.3 gm/dl (10.1-14.3) 10/15/19 14:43 Hct 39.5 % (30.3-42.9) 10/15/19 14:43 MCV 94 fl (79-97) 10/15/19 14:43 MCH 32 pg (28-32) 10/15/19 14:43 MCHC 34 % (30-34) 10/15/19 14:43 RDW 17.6 % (13.2-15.2) H 10/15/19 14:43 Plt Count 356 K/mm3 (140-440) 10/15/19 14:43 Lymph % (Auto) 36.0 % (13.4-35.0) H 10/15/19 14:43 [place] % (Auto) 7.4 % (0.0-7.3) H 10/15/19 14:43 Eos % (Auto) 1.0 % (0.0-4.3) 10/15/19 14:43 Baso % (Auto) 0.8 % (0.0-1.8) 10/15/19 14:43 Lymph # 2.6 K/mm3 (1.2-5.4) 10/15/19 14:43 [place] # 0.5 K/mm3 (0.0-0.8) 10/15/19 14:43 Eos # 0.1 K/mm3 (0.0-0.4) 10/15/19 14:43 Baso # 0.1 K/mm3 (0.0-0.1) 10/15/19 14:43 Seg Neutrophils % 54.8 % (40.0-70.0) 10/15/19 14:43 Seg Neutrophils # 4.0 K/mm3 (1.8-7.7) 10/15/19 14:43 PT 14.9 Sec. (12.2-14.9) 10/15/19 14:43 INR 1.15 (0.87-1.13) H 10/15/19 14:43 APTT 29.8 Sec. (24.2-36.6) 10/15/19 14:43 Thrombin Time 16.7 Sec. (15.1-19.6) 10/15/19 14:43 Sodium 140 mmol/L (137-145) 10/15/19 14:43 Potassium 3.0 mmol/L (3.6-5.0) L 10/15/19 14:43 Chloride 98.1 mmol/L (98-107) 10/15/19 14:43 Carbon Dioxide 26 mmol/L (22-30) 10/15/19 14:43 Anion Gap 19 mmol/L 10/15/19 14:43 BUN 8 mg/dL (7-17) 10/15/19 14:43 Creatinine 0.8 mg/dL (0.6-1.2) 10/15/19 14:43 Estimated GFR > 60 ml/min 10/15/19 14:43 BUN/Creatinine Ratio 10 % 10/15/19 14:43 Glucose 140 mg/dL (65-100) H 10/15/19 14:43 POC Glucose 100 (70-105) 10/18/19 16:56 Calcium 9.9 mg/dL (8.4-10.2) 10/15/19 14:43 Troponin T < 0.010 ng/mL (0.00-0.029) 10/15/19 14:43 - Diagnostic Impressions Diagnostic Impressions: Echocardiogram 10/15/19 16:44 Transthoracic Echocardiogram Indication: Stroke BP: 168/95 Conclusions *The study quality is technically difficult. *Global left ventricular systolic function is normal. *The estimated ejection fraction is 55-60%. *Mild concentric left ventricular hypertrophy is observed. *There is trace of mitral regurgitation. *There is mild tricuspid regurgitation. *A patent foramen ovale is not demonstrated by agitated saline contrast. Findings Procedure Info: The study quality is technically difficult. Left Ventricle: The left ventricular chamber size is normal. Mild concentric left ventricular hypertrophy is observed. Global left ventricular systolic function is normal. The estimated ejection fraction is 55-60%. Left Atrium: The left atrial chamber size is normal. Right Ventricle: The right ventricular cavity size is normal. Right Atrium: The right atrial cavity size is normal. A patent foramen ovale is not demonstrated by agitated saline contrast. Aortic Valve: The aortic valve leaflets are mildly thickened. There is no evidence of aortic regurgitation. There is no evidence of aortic stenosis. Mitral Valve: The mitral valve leaflets are mildly thickened. There is trace of mitral regurgitation. There is no evidence of mitral stenosis. Tricuspid Valve: There is mild tricuspid regurgitation. No pulmonary hypertension is noted. Pulmonic Valve: There is mild pulmonic regurgitation. Pericardium: There is no pericardial effusion. Aorta: There is no dilatation of the ascending aorta. There is no dilatation of the aortic root. Venous: The inferior vena cava appears normal in size. Contrast: Intravenous agitated saline contrast was used to assess intracardiac shunting. Measurements Chambers 2D Name Value Normal Range IVSd (2D) 1.38 cm (0.6 - 1.1) LVPWd (2D) 1.13 cm (0.6 - 1.1) LVIDd (2D) 4.8 cm (3.7 - 5.6) LVIDs (2D) 3.23 cm (2 - 3.8) LV FS (2D) 32.66 % - EF Teichholz (2D) 60.96 % - Ao root diameter (2D) 2.6 cm (2 - 3.7) Volumes/Mass Name Value Normal Range LA ESV SP 4CH (A/L) 46.18 ml - LA ESV SP 2CH (A/L) 49.39 ml - LA ESV BP (A/L) 49.48 ml - LA ESV BP (A/L) index 22.59 ml/m2 - LA ESV SP 4CH (MOD) 44.36 ml - LA ESV SP 2CH (MOD) 47.17 ml - LA ESV BP (MOD) 46.99 ml - LA ESV BP (MOD) index 21.45 ml/m2 - LV EDV SP 4CH (MOD) 71.66 ml - LV ESV SP 4CH (MOD) 29.98 ml - EF SP 4CH (MOD) 58.17 % - LV EDV SP 2CH (MOD) 81.67 ml - LV ESV SP 2CH (MOD) 31.9 ml - EF SP 2CH (MOD) 60.94 % - LV EDV BP 80.76 ml - LV ESV BP 32.62 ml - BP EF (MOD) 59.61 % - Diastolic/Systolic Function Name Value Normal Range MV E-wave Vmax 0.66 m/sec - MV deceleration time 286.4 msec - MV A-wave Vmax 0.99 m/sec - MV E:A ratio 0.67 ratio - Aortic Valve Name Value Normal Range AV Vmax 1.68 m/sec - AV VTI 33.8 cm - AV peak gradient 11.32 mmHg - AV mean gradient 6.11 mmHg - LVOT diameter 2.06 cm - LVOT Vmax 0.87 m/sec - LVOT VTI 20.22 cm - LVOT peak gradient 3.02 mmHg - LVOT mean gradient 1.63 mmHg - SV LVOT 67.66 ml - INDIRA (continuity Vmax) 1.73 cm2 - INDIRA (continuity VTI) 2 cm2 - Ascending Ao 3.45 cm - Tricuspid Valve Name Value Normal Range TV E-wave Vmax 0.58 m/sec - Pulmonic Valve/Qp:Qs Name Value Normal Range PV Vmax 1.19 m/sec - PV peak gradient 5.65 mmHg - CT end-diastolic Vmax 0.89 m/sec - PV acceleration time 95.15 msec - Yadav/IV: Voiding Method Toilet IV Catheter Type [Right INT / Saline Lock Antecubital] Active Medications - Current Medications Current Medications: Generic Name Dose Route Start Last Admin Trade Name Freq PRN Reason Stop Dose Admin Acetaminophen 650 mg 10/15/19 16:43 Tylenol PO Q4H PRN Pain, Mild (1-3) Amlodipine Besylate 10 mg 10/18/19 10:00 10/18/19 10:42 Amlodipine PO 10 mg QDAY LILIA Administration Aspirin 325 mg 10/16/19 10:00 10/18/19 10:43 Aspirin PO 325 mg QDAY LILIA Administration Atorvastatin Calcium 40 mg 10/15/19 22:00 10/17/19 21:50 Lipitor PO 40 mg QHS LILIA Administration Bisacodyl 10 mg 10/15/19 16:[address] QDAY PRN Constipation Magnesium Hydroxide 30 ml 10/15/19 16:43 Milk Of Magnesia PO Q4H PRN Constipation Metoclopramide HCl 10 mg 10/15/19 16:43 Reglan PO Q6H PRN Nausea And Vomiting Ondansetron HCl 4 mg 10/15/19 16:43 Zofran IV Q8H PRN Nausea And Vomiting Promethazine HCl 25 mg 10/15/19 16:[address] Q6H PRN Nausea And Vomiting
[2019-10-19] MEDS: ASPIRIN 325 MG TAB PO SCH (10:14)
[2019-10-19] MEDS: amLODIPine 10 MG TAB PO SCH (11:16)
--- NOTE | 2019-10-19 20:19 | Progress Note ---
Assessment and Plan - Patient Problems (1) CVA (cerebral vascular accident) Current Visit: Yes Status: Acute Qualifiers: Precerebral and cerebral artery: middle cerebral artery Laterality of affected vessel: right Plan to address problem: Stroke protocol: CT head reviewed, neuro check, physical therapy, Occupational Therapy, speech therapy, echocardiogram reviewed, carotid Doppler reviewed, d ouble antiplatelet therapy, tele-neurology consulted. DC planning to acute rehab. Case management consulted for assistance with discharge planning and placement. (2) Obesity hypoventilation syndrome Current Visit: Yes Status: Acute Plan to address problem: Supplemental oxygen, pulse oximetry, pulmonary toilet, CPAP nightly. (3) Hypertension Current Visit: Yes Status: Acute Qualifiers: Hypertension type: essential hypertension Qualified Code(s): I10 - Essential (primary) hypertension Plan to address problem: Permissive hypertension overnight, monitor blood pressure every shift. (4) DVT prophylaxis Current Visit: Yes Status: Acute Plan to address problem: SCD to bilateral lower extremities while in bed. (5) Advance care planning Current Visit: Yes Status: Acute Plan to address problem: Disease education conducted, patient is full code, prognosis discussed, patient acknowledges understanding and agreement with care plan, +30 minutes History Interval history: 59 YO Female HD #5 with CVA complicated by RHP, Obesity Hypoventilation Syndrome, HTN, Asthma. Patient resting comfortably in bed. Patient denies any new a.m. complaints. Patient denies pain. Patient medically optimized. No reported nursing events. Case management consulted for discharge planning and assistance with discharge. Hospitalist Physical - Constitutional Vitals: Temp Pulse Resp BP Pulse Ox 97.7 F 75 18 147/86 94 10/19/19 16:45 10/19/19 16:45 10/19/19 16:45 10/19/19 16:45 10/19/19 16:45 General appearance: Present: mild distress, obese - EENT Eyes: Present: PERRL, EOM intact ENT: hearing intact - Neck Neck: Present: supple - Respiratory Respiratory effort: normal Respiratory: bilateral: CTA - Cardiovascular Rhythm: regular Heart Sounds: Present: S1 & S2 - Extremities Extremities: no ischemia Peripheral Pulses: within normal limits - Abdominal General gastrointestinal: soft, non-tender, non-distended - Integumentary Integumentary: Present: clear, erythema - Psychiatric Psychiatric: appropriate mood/affect, cooperative - Neurologic Neurologic: no CNII-XII intact, focal deficits, no moves all extremities, no gait normal HEART Score - HEART Score Troponin: Troponin T < 0.010 ng/mL (0.00-0.029) 10/15/19 14:43 Results - Labs CBC & Chem 7: 10/15/19 14:43 10/15/19 14:43 Labs: Laboratory Last Values WBC 7.3 K/mm3 (4.5-11.0) 10/15/19 14:43 RBC 4.21 M/mm3 (3.65-5.03) 10/15/19 14:43 Hgb 13.3 gm/dl (10.1-14.3) 10/15/19 14:43 Hct 39.5 % (30.3-42.9) 10/15/19 14:43 MCV 94 fl (79-97) 10/15/19 14:43 MCH 32 pg (28-32) 10/15/19 14:43 MCHC 34 % (30-34) 10/15/19 14:43 RDW 17.6 % (13.2-15.2) H 10/15/19 14:43 Plt Count 356 K/mm3 (140-440) 10/15/19 14:43 Lymph % (Auto) 36.0 % (13.4-35.0) H 10/15/19 14:43 [place] % (Auto) 7.4 % (0.0-7.3) H 10/15/19 14:43 Eos % (Auto) 1.0 % (0.0-4.3) 10/15/19 14:43 Baso % (Auto) 0.8 % (0.0-1.8) 10/15/19 14:43 Lymph # 2.6 K/mm3 (1.2-5.4) 10/15/19 14:43 [place] # 0.5 K/mm3 (0.0-0.8) 10/15/19 14:43 Eos # 0.1 K/mm3 (0.0-0.4) 10/15/19 14:43 Baso # 0.1 K/mm3 (0.0-0.1) 10/15/19 14:43 Seg Neutrophils % 54.8 % (40.0-70.0) 10/15/19 14:43 Seg Neutrophils # 4.0 K/mm3 (1.8-7.7) 10/15/19 14:43 PT 14.9 Sec. (12.2-14.9) 10/15/19 14:43 INR 1.15 (0.87-1.13) H 10/15/19 14:43 APTT 29.8 Sec. (24.2-36.6) 10/15/19 14:43 Thrombin Time 16.7 Sec. (15.1-19.6) 10/15/19 14:43 Sodium 140 mmol/L (137-145) 10/15/19 14:43 Potassium 3.0 mmol/L (3.6-5.0) L 10/15/19 14:43 Chloride 98.1 mmol/L (98-107) 10/15/19 14:43 Carbon Dioxide 26 mmol/L (22-30) 10/15/19 14:43 Anion Gap 19 mmol/L 10/15/19 14:43 BUN 8 mg/dL (7-17) 10/15/19 14:43 Creatinine 0.8 mg/dL (0.6-1.2) 10/15/19 14:43 Estimated GFR > 60 ml/min 10/15/19 14:43 BUN/Creatinine Ratio 10 % 10/15/19 14:43 Glucose 140 mg/dL (65-100) H 10/15/19 14:43 POC Glucose 94 (70-105) 10/19/19 16:59 Calcium 9.9 mg/dL (8.4-10.2) 10/15/19 14:43 Troponin T < 0.010 ng/mL (0.00-0.029) 10/15/19 14:43 - Diagnostic Impressions Diagnostic Impressions: Echocardiogram 10/15/19 16:44 Transthoracic Echocardiogram Indication: Stroke BP: 168/95 Conclusions *The study quality is technically difficult. *Global left ventricular systolic function is normal. *The estimated ejection fraction is 55-60%. *Mild concentric left ventricular hypertrophy is observed. *There is trace of mitral regurgitation. *There is mild tricuspid regurgitation. *A patent foramen ovale is not demonstrated by agitated saline contrast. Findings Procedure Info: The study quality is technically difficult. Left Ventricle: The left ventricular chamber size is normal. Mild concentric left ventricular hypertrophy is observed. Global left ventricular systolic function is normal. The estimated ejection fraction is 55-60%. Left Atrium: The left atrial chamber size is normal. Right Ventricle: The right ventricular cavity size is normal. Right Atrium: The right atrial cavity size is normal. A patent foramen ovale is not demonstrated by agitated saline contrast. Aortic Valve: The aortic valve leaflets are mildly thickened. There is no evidence of aortic regurgitation. There is no evidence of aortic stenosis. Mitral Valve: The mitral valve leaflets are mildly thickened. There is trace of mitral regurgitation. There is no evidence of mitral stenosis. Tricuspid Valve: There is mild tricuspid regurgitation. No pulmonary hypertension is noted. Pulmonic Valve: There is mild pulmonic regurgitation. Pericardium: There is no pericardial effusion. Aorta: There is no dilatation of the ascending aorta. There is no dilatation of the aortic root. Venous: The inferior vena cava appears normal in size. Contrast: Intravenous agitated saline contrast was used to assess intracardiac shunting. Measurements Chambers 2D Name Value Normal Range IVSd (2D) 1.38 cm (0.6 - 1.1) LVPWd (2D) 1.13 cm (0.6 - 1.1) LVIDd (2D) 4.8 cm (3.7 - 5.6) LVIDs (2D) 3.23 cm (2 - 3.8) LV FS (2D) 32.66 % - EF Teichholz (2D) 60.96 % - Ao root diameter (2D) 2.6 cm (2 - 3.7) Volumes/Mass Name Value Normal Range LA ESV SP 4CH (A/L) 46.18 ml - LA ESV SP 2CH (A/L) 49.39 ml - LA ESV BP (A/L) 49.48 ml - LA ESV BP (A/L) index 22.59 ml/m2 - LA ESV SP 4CH (MOD) 44.36 ml - LA ESV SP 2CH (MOD) 47.17 ml - LA ESV BP (MOD) 46.99 ml - LA ESV BP (MOD) index 21.45 ml/m2 - LV EDV SP 4CH (MOD) 71.66 ml - LV ESV SP 4CH (MOD) 29.98 ml - EF SP 4CH (MOD) 58.17 % - LV EDV SP 2CH (MOD) 81.67 ml - LV ESV SP 2CH (MOD) 31.9 ml - EF SP 2CH (MOD) 60.94 % - LV EDV BP 80.76 ml - LV ESV BP 32.62 ml - BP EF (MOD) 59.61 % - Diastolic/Systolic Function Name Value Normal Range MV E-wave Vmax 0.66 m/sec - MV deceleration time 286.4 msec - MV A-wave Vmax 0.99 m/sec - MV E:A ratio 0.67 ratio - Aortic Valve Name Value Normal Range AV Vmax 1.68 m/sec - AV VTI 33.8 cm - AV peak gradient 11.32 mmHg - AV mean gradient 6.11 mmHg - LVOT diameter 2.06 cm - LVOT Vmax 0.87 m/sec - LVOT VTI 20.22 cm - LVOT peak gradient 3.02 mmHg - LVOT mean gradient 1.63 mmHg - SV LVOT 67.66 ml - INDIRA (continuity Vmax) 1.73 cm2 - INDIRA (continuity VTI) 2 cm2 - Ascending Ao 3.45 cm - Tricuspid Valve Name Value Normal Range TV E-wave Vmax 0.58 m/sec - Pulmonic Valve/Qp:Qs Name Value Normal Range PV Vmax 1.19 m/sec - PV peak gradient 5.65 mmHg - ND end-diastolic Vmax 0.89 m/sec - PV acceleration time 95.15 msec - Yadav/IV: Voiding Method Toilet IV Catheter Type [Right INT / Saline Lock Antecubital] Active Medications - Current Medications Current Medications: Generic Name Dose Route Start Last Admin Trade Name Freq PRN Reason Stop Dose Admin Acetaminophen 650 mg 10/15/19 16:43 Tylenol PO Q4H PRN Pain, Mild (1-3) Amlodipine Besylate 10 mg 10/18/19 10:00 10/19/19 11:16 Amlodipine PO 10 mg QDAY LILIA Administration Aspirin 325 mg 10/16/19 10:00 10/19/19 10:14 Aspirin PO 325 mg QDAY LILIA Administration Atorvastatin Calcium 40 mg 10/15/19 22:00 10/18/19 21:31 Lipitor PO 40 mg QHS LILIA Administration Bisacodyl 10 mg 10/15/19 16:43 Dulcolax ND QDAY PRN Constipation Magnesium Hydroxide 30 ml 10/15/19 16:43 Milk Of Magnesia PO Q4H PRN Constipation Metoclopramide HCl 10 mg 10/15/19 16:43 Reglan PO Q6H PRN Nausea And Vomiting Ondansetron HCl 4 mg 10/15/19 16:43 Zofran IV Q8H PRN Nausea And Vomiting Promethazine HCl 25 mg 10/15/19 16:43 Phenergan ND Q6H PRN Nausea And Vomiting
--- NOTE | 2019-10-20 08:12 | Progress Note ---
Assessment and Plan Assessment and plan: 59 YO Female HD #5 with CVA complicated by RHP, Obesity Hypoventilation Syndrome, HTN, Asthma. Patient resting comfortably in bed. Patient denies any new a.m. complaints. Patient denies pain. Patient medically optimized. No reported nursing events. Case management consulted for discharge planning and assistance with discharge. (1) CVA (cerebral vascular accident) -Patient has right upper extremity weakness -CT head was negative. MRI was not done, neurology not consult -I put neurology consult -Evaluated by PT OT and recommend acute rehab. But patient cannot go to rehab without neuro consultation. (2) Obesity hypoventilation syndrome Current Visit: Yes Status: Acute Plan to address problem: Supplemental oxygen, pulse oximetry, pulmonary toilet, CPAP nightly. (3) Hypertension Blood pressure is uncontrolled Patient is on amlodipine will continue with that and will add lisinopril. (4) DVT prophylaxis Current Visit: Yes Status: Acute Plan to address problem: SCD to bilateral lower extremities while in bed. (5) Advance care planning Current Visit: Yes Status: Acute Plan to address problem: Disease education conducted, patient is full code, prognosis discussed, patient acknowledges understanding and agreement with care plan. Patient was here for 5 days and there is no neuro consult or MRI done. Patient will go to rehab once evaluated by neurology. History Interval history: Patient was seen and evaluated this morning Patient is admitted for CVA with right-sided weakness There is no neurology consult in the chart, MRI was not done Hospitalist Physical - Physical exam Narrative exam: Not in cardiopulmonary distress. The patient is obese Vital signs as documented. Head exam is unremarkable. No scleral icterus . Neck is without jugular venous distension, thyromegaly, or carotid bruits. Lungs are clear to auscultation. Cardiac exam reveals regular rate and Rhythm. Abdominal exam reveals normal bowel sounds, nontender, no organomegaly. Extremities are nonedematous and both femoral and pedal pulses are normal. C4 PLANNER: Right upper extremity weakness, 2/5. Mild weakness of the right lower extremity - Constitutional Vitals: Temp Pulse Resp BP Pulse Ox 97.7 F 78 16 151/97 97 10/20/19 05:05 10/20/19 05:05 10/19/19 21:59 10/20/19 05:05 10/20/19 05:05 General appearance: Present: mild distress, obese HEART Score - HEART Score Troponin: Troponin T < 0.010 ng/mL (0.00-0.029) 10/15/19 14:43 Results - Labs CBC & Chem 7: 10/15/19 14:43 10/15/19 14:43 Labs: Laboratory Last Values WBC 7.3 K/mm3 (4.5-11.0) 10/15/19 14:43 RBC 4.21 M/mm3 (3.65-5.03) 10/15/19 14:43 Hgb 13.3 gm/dl (10.1-14.3) 10/15/19 14:43 Hct 39.5 % (30.3-42.9) 10/15/19 14:43 MCV 94 fl (79-97) 10/15/19 14:43 MCH 32 pg (28-32) 10/15/19 14:43 MCHC 34 % (30-34) 10/15/19 14:43 RDW 17.6 % (13.2-15.2) H 10/15/19 14:43 Plt Count 356 K/mm3 (140-440) 10/15/19 14:43 Lymph % (Auto) 36.0 % (13.4-35.0) H 10/15/19 14:43 Sabine % (Auto) 7.4 % (0.0-7.3) H 10/15/19 14:43 Eos % (Auto) 1.0 % (0.0-4.3) 10/15/19 14:43 Baso % (Auto) 0.8 % (0.0-1.8) 10/15/19 14:43 Lymph # 2.6 K/mm3 (1.2-5.4) 10/15/19 14:43 Sabine # 0.5 K/mm3 (0.0-0.8) 10/15/19 14:43 Eos # 0.1 K/mm3 (0.0-0.4) 10/15/19 14:43 Baso # 0.1 K/mm3 (0.0-0.1) 10/15/19 14:43 Seg Neutrophils % 54.8 % (40.0-70.0) 10/15/19 14:43 Seg Neutrophils # 4.0 K/mm3 (1.8-7.7) 10/15/19 14:43 PT 14.9 Sec. (12.2-14.9) 10/15/19 14:43 INR 1.15 (0.87-1.13) H 10/15/19 14:43 APTT 29.8 Sec. (24.2-36.6) 10/15/19 14:43 Thrombin Time 16.7 Sec. (15.1-19.6) 10/15/19 14:43 Sodium 140 mmol/L (137-145) 10/15/19 14:43 Potassium 3.0 mmol/L (3.6-5.0) L 10/15/19 14:43 Chloride 98.1 mmol/L (98-107) 10/15/19 14:43 Carbon Dioxide 26 mmol/L (22-30) 10/15/19 14:43 Anion Gap 19 mmol/L 10/15/19 14:43 BUN 8 mg/dL (7-17) 10/15/19 14:43 Creatinine 0.8 mg/dL (0.6-1.2) 10/15/19 14:43 Estimated GFR > 60 ml/min 10/15/19 14:43 BUN/Creatinine Ratio 10 % 10/15/19 14:43 Glucose 140 mg/dL (65-100) H 10/15/19 14:43 POC Glucose 101 (70-105) 10/20/19 08:05 Calcium 9.9 mg/dL (8.4-10.2) 10/15/19 14:43 Troponin T < 0.010 ng/mL (0.00-0.029) 10/15/19 14:43 - Diagnostic Impressions Diagnostic Impressions: Echocardiogram 10/15/19 16:44 Transthoracic Echocardiogram Indication: Stroke BP: 168/95 Conclusions *The study quality is technically difficult. *Global left ventricular systolic function is normal. *The estimated ejection fraction is 55-60%. *Mild concentric left ventricular hypertrophy is observed. *There is trace of mitral regurgitation. *There is mild tricuspid regurgitation. *A patent foramen ovale is not demonstrated by agitated saline contrast. Findings Procedure Info: The study quality is technically difficult. Left Ventricle: The left ventricular chamber size is normal. Mild concentric left ventricular hypertrophy is observed. Global left ventricular systolic function is normal. The estimated ejection fraction is 55-60%. Left Atrium: The left atrial chamber size is normal. Right Ventricle: The right ventricular cavity size is normal. Right Atrium: The right atrial cavity size is normal. A patent foramen ovale is not demonstrated by agitated saline contrast. Aortic Valve: The aortic valve leaflets are mildly thickened. There is no evidence of aortic regurgitation. There is no evidence of aortic stenosis. Mitral Valve: The mitral valve leaflets are mildly thickened. There is trace of mitral regurgitation. There is no evidence of mitral stenosis. Tricuspid Valve: There is mild tricuspid regurgitation. No pulmonary hypertension is noted. Pulmonic Valve: There is mild pulmonic regurgitation. Pericardium: There is no pericardial effusion. Aorta: There is no dilatation of the ascending aorta. There is no dilatation of the aortic root. Venous: The inferior vena cava appears normal in size. Contrast: Intravenous agitated saline contrast was used to assess intracardiac shunting. Measurements Chambers 2D Name Value Normal Range IVSd (2D) 1.38 cm (0.6 - 1.1) LVPWd (2D) 1.13 cm (0.6 - 1.1) LVIDd (2D) 4.8 cm (3.7 - 5.6) LVIDs (2D) 3.23 cm (2 - 3.8) LV FS (2D) 32.66 % - EF Teichholz (2D) 60.96 % - Ao root diameter (2D) 2.6 cm (2 - 3.7) Volumes/Mass Name Value Normal Range LA ESV SP 4CH (A/L) 46.18 ml - LA ESV SP 2CH (A/L) 49.39 ml - LA ESV BP (A/L) 49.48 ml - LA ESV BP (A/L) index 22.59 ml/m2 - LA ESV SP 4CH (MOD) 44.36 ml - LA ESV SP 2CH (MOD) 47.17 ml - LA ESV BP (MOD) 46.99 ml - LA ESV BP (MOD) index 21.45 ml/m2 - LV EDV SP 4CH (MOD) 71.66 ml - LV ESV SP 4CH (MOD) 29.98 ml - EF SP 4CH (MOD) 58.17 % - LV EDV SP 2CH (MOD) 81.67 ml - LV ESV SP 2CH (MOD) 31.9 ml - EF SP 2CH (MOD) 60.94 % - LV EDV BP 80.76 ml - LV ESV BP 32.62 ml - BP EF (MOD) 59.61 % - Diastolic/Systolic Function Name Value Normal Range MV E-wave Vmax 0.66 m/sec - MV deceleration time 286.4 msec - MV A-wave Vmax 0.99 m/sec - MV E:A ratio 0.67 ratio - Aortic Valve Name Value Normal Range AV Vmax 1.68 m/sec - AV VTI 33.8 cm - AV peak gradient 11.32 mmHg - AV mean gradient 6.11 mmHg - LVOT diameter 2.06 cm - LVOT Vmax 0.87 m/sec - LVOT VTI 20.22 cm - LVOT peak gradient 3.02 mmHg - LVOT mean gradient 1.63 mmHg - SV LVOT 67.66 ml - INDIRA (continuity Vmax) 1.73 cm2 - INDIRA (continuity VTI) 2 cm2 - Ascending Ao 3.45 cm - Tricuspid Valve Name Value Normal Range TV E-wave Vmax 0.58 m/sec - Pulmonic Valve/Qp:Qs Name Value Normal Range PV Vmax 1.19 m/sec - PV peak gradient 5.65 mmHg - NE end-diastolic Vmax 0.89 m/sec - PV acceleration time 95.15 msec - Yadav/IV: Voiding Method Toilet IV Catheter Type [Right INT / Saline Lock Antecubital] Active Medications - Current Medications Current Medications: Generic Name Dose Route Start Last Admin Trade Name Freq PRN Reason Stop Dose Admin Acetaminophen 650 mg 10/15/19 16:43 Tylenol PO Q4H PRN Pain, Mild (1-3) Amlodipine Besylate 10 mg 10/18/19 10:00 10/19/19 11:16 Amlodipine PO 10 mg QDAY LILIA Administration Aspirin 325 mg 10/16/19 10:00 10/19/19 10:14 Aspirin PO 325 mg QDAY LILIA Administration Atorvastatin Calcium 40 mg 10/15/19 22:00 10/19/19 22:04 Lipitor PO 40 mg QHS LILIA Administration Bisacodyl 10 mg 10/15/19 16:43 Dulcolax NE QDAY PRN Constipation Magnesium Hydroxide 30 ml 10/15/19 16:43 Milk Of Magnesia PO Q4H PRN Constipation Metoclopramide HCl 10 mg 10/15/19 16:43 Reglan PO Q6H PRN Nausea And Vomiting Ondansetron HCl 4 mg 10/15/19 16:43 Zofran IV Q8H PRN Nausea And Vomiting Promethazine HCl 25 mg 10/15/19 16:43 Phenergan NE Q6H PRN Nausea And Vomiting
[2019-10-20] MEDS: ASPIRIN 325 MG TAB PO SCH ×2 (08:42→19:54)
[2019-10-20] MEDS: amLODIPine 10 MG TAB PO SCH ×2 (08:42→19:53)
--- NOTE | 2019-10-20 15:36 | Consultation ---
History of Present Illness Consult date: 10/20/19 Reason for Consult: Right sided weakness Chief complaint: Right sided weakness History of present illness: Patient is a 59 y/o woman w/ a h/o HTN and asthma. She presented on 10/15/19 with right sided weakness and facial droop. She takes ASA at home. Patient was evaluated by teleneurology in ER, and was not felt to be a candidate for tPA at that time. Symptoms have not changed since onset. Past History Past Medical History: hypertension, other (See HPI) Past Surgical History: No surgical history Social history: , other (Marijuana use). denies: smoking, alcohol abuse, prescription drug abuse Family history: diabetes, hypertension Medications and Allergies Allergies Allergy/AdvReac Type Severity Reaction Status Date / Time No Known Allergies Allergy Unverified 08/17/13 08:12 Home Medications Medication Instructions Recorded Confirmed Last Taken Type Aspirin [Aspirin BABY CHEW TAB] 81 mg PO QDAY #30 tab.chew 10/16/19 Unknown Rx AtorvaSTATin [Lipitor] 40 mg PO QHS #30 tablet 10/16/19 Unknown Rx Clopidogrel [Plavix] 75 mg PO QDAY #30 tablet 10/16/19 Unknown Rx Fosinopril-Hctz 20-12.5 mg 1 tab PO DAILY 10/16/19 10/16/19 Unknown History Active Meds: Active Medications Acetaminophen (Tylenol) 650 mg PO Q4H PRN PRN Reason: Pain, Mild (1-3) Amlodipine Besylate (Amlodipine) 10 mg PO QDAY [facility] Last Admin: 10/20/19 08:42 Dose: 10 mg Documented by: Aspirin (Aspirin) 325 mg PO QDAY [facility] Last Admin: 10/20/19 08:42 Dose: 325 mg Documented by: Atorvastatin Calcium (Lipitor) 40 mg PO QHS [facility] Last Admin: 10/19/19 22:04 Dose: 40 mg Documented by: Bisacodyl (Dulcolax) 10 mg SC QDAY PRN PRN Reason: Constipation Lisinopril (Zestril) 20 mg PO QDAY [facility] Magnesium Hydroxide (Milk Of Magnesia) 30 ml PO Q4H PRN PRN Reason: Constipation Metoclopramide HCl (Reglan) 10 mg PO Q6H PRN PRN Reason: Nausea And Vomiting Ondansetron HCl (Zofran) 4 mg IV Q8H PRN PRN Reason: Nausea And Vomiting Promethazine HCl (Phenergan) 25 mg SC Q6H PRN PRN Reason: Nausea And Vomiting Review of Systems All systems: negative Neurological: weakness Physical Examination - Vital Signs Vital Signs: Vital Signs Temp Pulse Resp BP Pulse Ox 98.0 F 99 H 16 155/91 100 10/15/19 14:27 10/15/19 14:27 10/15/19 14:27 10/15/19 14:27 10/15/19 14:27 - Physical Exam Narrative exam: Patient is alert, awake, oriented x4, follows complex commands. No dysarthria or aphasia noted. PERRL, EOMI, VFF, tongue midline, bilaterally intact to LT, Right facial weakness noted. 5/5 strength in LUE/LLE, 3/5 in RUE/RLE. Bilaterally intact light touch - Level of Consciousness 1a. Level of Consciousness: alert/keenly responsive - LOC Questions 1b. LOC Questions: answers both correctly - LOC Command 1c. LOC Commands: performs tasks correctly - Best Gaze 2. Best Gaze: normal - Visual 3. Visual: no visual loss - Facial Palsy 4. Facial Palsy: minor paralysis - Motor Arm 5a. Motor Arm Left: no drift 5b. Motor Arm Right: drift - Motor Leg 6a. Motor Leg Left: no drift 6b. Motor Leg Right: no drift - Limb Ataxia 7. Limb Ataxia: absent - Sensory 8. Sensory: normal - Best Language 9. Best Language: no aphasia - Dysarthria 10. Dysarthria: normal - Extinction and Inattention 11. Extinction/Inattention: no abnormality - Scoring Total Score: 2 Stroke Severity: Minor Stroke Results - Laboratory Findings CBC and BMP: 10/15/19 14:43 10/15/19 14:43 Abnormal Lab Findings: Abnormal Labs 10/15/19 10/15/19 10/15/19 14:43 14:43 14:43 RDW 17.6 H Lymph % (Auto) 36.0 H Bond % (Auto) 7.4 H INR 1.15 H Potassium 3.0 L Glucose 140 H POC Glucose 10/15/19 10/17/19 10/18/19 14:44 22:35 07:38 RDW Lymph % (Auto) Bond % (Auto) INR Potassium Glucose POC Glucose 160 H 129 H 136 H 10/18/19 22:31 RDW Lymph % (Auto) Bond % (Auto) INR Potassium Glucose POC Glucose 107 H Assessment and Plan Patient is a 59 y/o woman w/ a h/o HTN and asthma, who p/w right sided weakness and facial droop. According to the patient's clinical findings, she has had a stroke. Plan: 1. Stroke: - MRI brain: Left subcortical infarct noted. - MRA head/neck: no significant stenosis. - CT head: No acute abnormalities. - CUS: No significant stenosis. - Echo: EF 55-60%, LA normal size, bubble study negative. - Recommend dual antiplatelet therapy with aspirin 81 mg daily and Plavix 75 mg daily for 30 days, after which Plavix can be stopped. Discussed risks and benefits of dual antiplatelet therapy with patient, including hemorrhage, and patient agreed to take this. - Cont. statin. LDL goal <70 - Telemetry monitoring while in house - PT/OT/ST - DVT Ppx: Recommend lovenox - As infarct is larger than typical lacunar stroke, would recommend long-term c ardiac monitoring with 30-day MCOT or ILR to be done as outpatient with cardiology. 2. Hypertension: - Recommend BP goal of normotension, as it has been >48 hours since symptom onset. - Will sign off, as neurologic investigations are complete, and treatment plan is in place. Please call with any questions. Thank you for allowing me to take part in the care of this patient. Scooby Enriquez MD Neurology This clinical encounter was provided via live telemedicine platform. Consultative service was provided for neurology to support local providers. The Acute Teleneurology team should be contacted with any neurologic worsening or clinical changes, new test results, or new patient history that is reported to or discovered by the local team following completion of the teleneurology consul tation, specifically that which has the potential to impact the consultative recommendations. Patient/Family was informed the Neurology Consult would happen via TeleHealth consult by way of interactive audio and video telecommunications and consented to receiving care in this manner. Due to the potential for life-threatening deterioration due to underlying neurologic illness, and limited resources available for patient care, telemedicine was used as means of patient care. Telemedicine consultation is limited in the extent of physical exam that can be virtually provided. Time spent evaluating patient includes time for face to face visit via telemedicine, review of medical records, imaging studies and discussion of findings with providers, the patient and/or family.
--- NOTE | 2019-10-20 15:37 | Magnetic Resonance Report ---
MRA HEAD WITHOUT CONTRAST HISTORY: Stroke; right-sided weakness COMPARISON: None. TECHNIQUE: Routine MRA of the head is performed. 3-D/MIP reformats postprocessed. CONTRAST: None. FINDINGS: Intracranial vertebral arteries: No significant abnormality Basilar artery: No significant abnormality. Dolichocephaly ectasia Posterior cerebral arteries: No significant abnormality. Left posterior communicating artery contribu ting to left posterior cerebral artery Intracranial internal carotid arteries: No significant abnormality. Anterior cerebral arteries: No significant abnormality. Middle cerebral arteries: No significant abnormality. Variants and anomalies:None Additional findings: None. IMPRESSION: No significant abnormality. Signer Name: Lamont Reyes MD Signed: 10/20/2019 3:33 PM Workstation Name: [id number]
--- NOTE | 2019-10-20 15:42 | Magnetic Resonance Report ---
NONENHANCED MR SCAN OF THE BRAIN: INDICATION / CLINICAL INFORMATION: Right-sided weakness TECHNIQUE: Multiplanar, multisequence MR images of the brain obtained. COMPARISON: CT scan of the head from 10/15/2019 FINDINGS: BRAIN / INTRACRANIAL CONTENTS: Subacute infarction is seen in the left basal ganglia involving powers radiata and body of left caudate. This infarction is more than 24 hours old but less than 4-5 days o ld. No hemorrhagic changes are seen. No significant mass effect over the left lateral ventricle. Brainstem and cerebellar hemispheres are normal. Right cerebral hemisphere is normal. CRANIOCERVICAL JUNCTION: No significant abnormality. VASCULAR FLOW-VOIDS: No significant abnormality. ORBITS: No significant abnormality of visualized orbits. SINUSES / MASTOIDS: No significant abnormality of visualized sinuses and mastoid air cells. ADDITIONAL FINDINGS: None. IMPRESSION: 1. Subacute right basal ganglia infarction involving right powers radiata and body of right caudate; no hemorrhagic changes Signer Name: Lamont Reyes MD Signed: 10/20/2019 3:37 PM Workstation Name: [id number]
--- NOTE | 2019-10-20 15:42 | Magnetic Resonance Report ---
MRA NECK WITHOUT CONTRAST HISTORY: Right-sided weakness COMPARISON: None. TECHNIQUE: Routine MRA of the neck was performed. 3-D/MIP reformats postprocessed. Percentage stenos is is determined by direct quantitative measurements of distal internal carotid artery diameter syed red with normal reference segments or by criteria similar to NASCET where applicable. CONTRAST: None. FINDINGS: Cervical vertebral arteries: No significant abnormality. Common carotid arteries: No significant abnormality. Carotid bifurcations: No significant abnormality Cervical internal carotid arteries: No significant abnormality. Additional findings: None. IMPRESSION: 1. No significant abnormality. Signer Name: Lamont Reyes MD Signed: 10/20/2019 3:38 PM Workstation Name: [id number]
[2019-10-20 16:15] LABS: Chol/HDL Ratio 2.38 %
[2019-10-20] MEDS: LISINOPRIL 20 MG TAB PO SCH (17:24)
--- NOTE | 2019-10-21 08:32 | Progress Note ---
Assessment and Plan Assessment and plan: 59 YO Female HD #5 with CVA complicated by RHP, Obesity Hypoventilation Syndrome, HTN, Asthma. Patient resting comfortably in bed. Patient denies any new a.m. complaints. Patient denies pain. Patient medically optimized. No reported nursing events. Case management consulted for discharge planning and assistance with discharge. (1) CVA (cerebral vascular accident) -Patient has right upper extremity weakness -CT head was negative. MRI showed subacute left basal ganglia infarction evolving of the left coronary radiata -Neurology consulted patient -Evaluated by PT OT and recommend acute rehab. But patient cannot go to rehab without neuro consultation. (2) Obesity hypoventilation syndrome Current Visit: Yes Status: Acute Plan to address problem: Supplemental oxygen, pulse oximetry, pulmonary toilet, CPAP nightly. (3) Hypertension Blood pressure is uncontrolled Patient is on amlodipine will continue with that and will add lisinopril. (4) DVT prophylaxis Current Visit: Yes Status: Acute Plan to address problem: SCD to bilateral lower extremities while in bed. (5) Advance care planning Current Visit: Yes Status: Acute Plan to address problem: Disease education conducted, patient is full code, prognosis discussed, patient acknowledges understanding and agreement with care plan. Patient was evaluated by neurology PT OT evaluated and recommended acute rehab. Patient is medically stable to be discharged to acute rehab. Will discuss with case management. History Interval history: Patient was seen and evaluated this morning Patient is admitted for CVA with right-sided weakness Patient was evaluated by neurology and CVA work-up was completed Hospitalist Physical - Physical exam Narrative exam: Not in cardiopulmonary distress. The patient is obese Vital signs as documented. Head exam is unremarkable. No scleral icterus . Neck is without jugular venous distension, thyromegaly, or carotid bruits. Lungs are clear to auscultation. Cardiac exam reveals regular rate and Rhythm. Abdominal exam reveals normal bowel sounds, nontender, no organomegaly. Extremities are nonedematous and both femoral and pedal pulses are normal. 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 Mild weakness of the right lower extremity - Constitutional Vitals: Temp Pulse Resp BP Pulse Ox 98.9 F 70 18 150/91 97 10/21/19 04:38 10/21/19 03:31 10/21/19 04:38 10/21/19 04:38 10/20/19 21:42 General appearance: Present: mild distress, obese HEART Score - HEART Score Troponin: Troponin T < 0.010 ng/mL (0.00-0.029) 10/15/19 14:43 Results - Labs CBC & Chem 7: 10/15/19 14:43 10/15/19 14:43 Labs: Laboratory Last Values WBC 7.3 K/mm3 (4.5-11.0) 10/15/19 14:43 RBC 4.21 M/mm3 (3.65-5.03) 10/15/19 14:43 Hgb 13.3 gm/dl (10.1-14.3) 10/15/19 14:43 Hct 39.5 % (30.3-42.9) 10/15/19 14:43 MCV 94 fl (79-97) 10/15/19 14:43 MCH 32 pg (28-32) 10/15/19 14:43 MCHC 34 % (30-34) 10/15/19 14:43 RDW 17.6 % (13.2-15.2) H 10/15/19 14:43 Plt Count 356 K/mm3 (140-440) 10/15/19 14:43 Lymph % (Auto) 36.0 % (13.4-35.0) H 10/15/19 14:43 [place] % (Auto) 7.4 % (0.0-7.3) H 10/15/19 14:43 Eos % (Auto) 1.0 % (0.0-4.3) 10/15/19 14:43 Baso % (Auto) 0.8 % (0.0-1.8) 10/15/19 14:43 Lymph # 2.6 K/mm3 (1.2-5.4) 10/15/19 14:43 [place] # 0.5 K/mm3 (0.0-0.8) 10/15/19 14:43 Eos # 0.1 K/mm3 (0.0-0.4) 10/15/19 14:43 Baso # 0.1 K/mm3 (0.0-0.1) 10/15/19 14:43 Seg Neutrophils % 54.8 % (40.0-70.0) 10/15/19 14:43 Seg Neutrophils # 4.0 K/mm3 (1.8-7.7) 10/15/19 14:43 PT 14.9 Sec. (12.2-14.9) 10/15/19 14:43 INR 1.15 (0.87-1.13) H 10/15/19 14:43 APTT 29.8 Sec. (24.2-36.6) 10/15/19 14:43 Thrombin Time 16.7 Sec. (15.1-19.6) 10/15/19 14:43 Sodium 140 mmol/L (137-145) 10/15/19 14:43 Potassium 3.0 mmol/L (3.6-5.0) L 10/15/19 14:43 Chloride 98.1 mmol/L (98-107) 10/15/19 14:43 Carbon Dioxide 26 mmol/L (22-30) 10/15/19 14:43 Anion Gap 19 mmol/L 10/15/19 14:43 BUN 8 mg/dL (7-17) 10/15/19 14:43 Creatinine 0.8 mg/dL (0.6-1.2) 10/15/19 14:43 Estimated GFR > 60 ml/min 10/15/19 14:43 BUN/Creatinine Ratio 10 % 10/15/19 14:43 Glucose 140 mg/dL (65-100) H 10/15/19 14:43 POC Glucose 91 (70-105) 10/21/19 07:40 Calcium 9.9 mg/dL (8.4-10.2) 10/15/19 14:43 Troponin T < 0.010 ng/mL (0.00-0.029) 10/15/19 14:43 Triglycerides 80 mg/dL (2-149) 10/20/19 15:20 Cholesterol 141 mg/dL (50-199) 10/20/19 15:20 LDL Cholesterol Direct 71 mg/dL (50-130) 10/20/19 15:20 HDL Cholesterol 59 mg/dL (40-59) 10/20/19 15:20 Cholesterol/HDL Ratio 2.38 % 10/20/19 15:20 - Diagnostic Impressions Diagnostic Impressions: Echocardiogram 10/15/19 16:44 Transthoracic Echocardiogram Indication: Stroke BP: 168/95 Conclusions *The study quality is technically difficult. *Global left ventricular systolic function is normal. *The estimated ejection fraction is 55-60%. *Mild concentric left ventricular hypertrophy is observed. *There is trace of mitral regurgitation. *There is mild tricuspid regurgitation. *A patent foramen ovale is not demonstrated by agitated saline contrast. Findings Procedure Info: The study quality is technically difficult. Left Ventricle: The left ventricular chamber size is normal. Mild concentric left ventricular hypertrophy is observed. Global left ventricular systolic function is normal. The estimated ejection fraction is 55-60%. Left Atrium: The left atrial chamber size is normal. Right Ventricle: The right ventricular cavity size is normal. Right Atrium: The right atrial cavity size is normal. A patent foramen ovale is not demonstrated by agitated saline contrast. Aortic Valve: The aortic valve leaflets are mildly thickened. There is no evidence of aortic regurgitation. There is no evidence of aortic stenosis. Mitral Valve: The mitral valve leaflets are mildly thickened. There is trace of mitral regurgitation. There is no evidence of mitral stenosis. Tricuspid Valve: There is mild tricuspid regurgitation. No pulmonary hypertension is noted. Pulmonic Valve: There is mild pulmonic regurgitation. Pericardium: There is no pericardial effusion. Aorta: There is no dilatation of the ascending aorta. There is no dilatation of the aortic root. Venous: The inferior vena cava appears normal in size. Contrast: Intravenous agitated saline contrast was used to assess intracardiac shunting. Measurements Chambers 2D Name Value Normal Range IVSd (2D) 1.38 cm (0.6 - 1.1) LVPWd (2D) 1.13 cm (0.6 - 1.1) LVIDd (2D) 4.8 cm (3.7 - 5.6) LVIDs (2D) 3.23 cm (2 - 3.8) LV FS (2D) 32.66 % - EF Teichholz (2D) 60.96 % - Ao root diameter (2D) 2.6 cm (2 - 3.7) Volumes/Mass Name Value Normal Range LA ESV SP 4CH (A/L) 46.18 ml - LA ESV SP 2CH (A/L) 49.39 ml - LA ESV BP (A/L) 49.48 ml - LA ESV BP (A/L) index 22.59 ml/m2 - LA ESV SP 4CH (MOD) 44.36 ml - LA ESV SP 2CH (MOD) 47.17 ml - LA ESV BP (MOD) 46.99 ml - LA ESV BP (MOD) index 21.45 ml/m2 - LV EDV SP 4CH (MOD) 71.66 ml - LV ESV SP 4CH (MOD) 29.98 ml - EF SP 4CH (MOD) 58.17 % - LV EDV SP 2CH (MOD) 81.67 ml - LV ESV SP 2CH (MOD) 31.9 ml - EF SP 2CH (MOD) 60.94 % - LV EDV BP 80.76 ml - LV ESV BP 32.62 ml - BP EF (MOD) 59.61 % - Diastolic/Systolic Function Name Value Normal Range MV E-wave Vmax 0.66 m/sec - MV deceleration time 286.4 msec - MV A-wave Vmax 0.99 m/sec - MV E:A ratio 0.67 ratio - Aortic Valve Name Value Normal Range AV Vmax 1.68 m/sec - AV VTI 33.8 cm - AV peak gradient 11.32 mmHg - AV mean gradient 6.11 mmHg - LVOT diameter 2.06 cm - LVOT Vmax 0.87 m/sec - LVOT VTI 20.22 cm - LVOT peak gradient 3.02 mmHg - LVOT mean gradient 1.63 mmHg - SV LVOT 67.66 ml - INDIRA (continuity Vmax) 1.73 cm2 - INDIRA (continuity VTI) 2 cm2 - Ascending Ao 3.45 cm - Tricuspid Valve Name Value Normal Range TV E-wave Vmax 0.58 m/sec - Pulmonic Valve/Qp:Qs Name Value Normal Range PV Vmax 1.19 m/sec - PV peak gradient 5.65 mmHg - CO end-diastolic Vmax 0.89 m/sec - PV acceleration time 95.15 msec - Yadav/IV: Voiding Method Toilet IV Catheter Type [Right INT / Saline Lock Antecubital] Active Medications - Current Medications Current Medications: Generic Name Dose Route Start Last Admin Trade Name Freq PRN Reason Stop Dose Admin Acetaminophen 650 mg 10/15/19 16:43 10/20/19 21:40 Tylenol PO 650 mg Q4H PRN Administration Pain, Mild (1-3) Amlodipine Besylate 10 mg 10/18/19 10:00 10/20/19 19:53 Amlodipine PO Not Given QDAY [facility] Aspirin 81 mg 10/21/19 10:00 Halfprin Ec PO QDAY [facility] Atorvastatin Calcium 40 mg 10/15/19 22:00 10/20/19 21:40 Lipitor PO 40 mg QHS [facility] Administration Bisacodyl 10 mg 10/15/19 16:43 Dulcolax CO QDAY PRN Constipation Clopidogrel Bisulfate 75 mg 10/21/19 10:00 Plavix PO QDAY [facility] Lisinopril 20 mg 10/20/19 12:00 10/20/19 17:24 Zestril PO 20 mg QDAY [facility] Administration Magnesium Hydroxide 30 ml 10/15/19 16:43 Milk Of Magnesia PO Q4H PRN Constipation Metoclopramide HCl 10 mg 10/15/19 16:43 Reglan PO Q6H PRN Nausea And Vomiting Ondansetron HCl 4 mg 10/15/19 16:43 Zofran IV Q8H PRN Nausea And Vomiting Promethazine HCl 25 mg 10/15/19 16:43 Phenergan CO Q6H PRN Nausea And Vomiting
[2019-10-21] MEDS ORDERED: ASPIRIN EC 81 MG TAB PO SCH (10:00)
[2019-10-21] MEDS ORDERED: CLOPIDOGREL 75 MG TAB PO SCH (10:00)
[2019-10-21] MEDS: amLODIPine 10 MG TAB PO SCH (10:01)
[2019-10-21] MEDS: LISINOPRIL 20 MG TAB PO SCH (10:01)
[2019-10-21 11:46] LABS: BUN/Creatinine Ratio 17; Blood Urea Nitrogen 10 mg/dL (7-17); Hemolysis Index 7
[2019-10-21 12:38] VITALS: BP 153/95
--- NOTE | 2019-10-21 13:02 | Discharge Summary ---
Providers - Providers Date of Admission: 10/20/19 13:15 Date of discharge: 10/21/19 Attending physician: HUMBERTO CABRERA MD 10/20/19 11:07 Consult to Physician [CONS] Routine Comment: Consulting Provider: VALDEMAR SHAH Physician Instructions: Reason For Exam: CVA Primary care physician: [employer]UM KETTLE TENDER Hospitalization Reason for admission: Acute CVA with eight arm weakness Condition: Serious Pertinent studies: CT head, MRI, echo, carotid Doppler Hospital course: HPI 59 YO Female with Obesity Hypoventilation Syndrome, HTN, Asthma presents to ED for evaluation. Patient states that she was in her usual state of health at bedtime which was around 2100 hrs. Patient states that she awoke from sleep at approximately 0500 hrs. this morning. Patient states that upon awakening she experienced right arm and leg weakness, right-sided facial droop, slurred speech. Patient states that she decided to get something to eat and wait for the symptoms to resolve. Patient states that symptoms persisted for several hours. Patient subsequently transported to EMS via private vehicle for care and evaluation of the aforementioned symptoms. Patient seen and evaluated in the emergency department. Lab and image studies reviewed. Patient found to have symptoms consistent with acute CVA. Patient is outside the therapeutic window for TPA. Tele-neurology was consulted. Patient placed in observation status and admitted to medical floor for further evaluation and care. Patient i nitiated on CVA protocol. Patient denies fever, chills, chest pain, palpitations, productive cough, trauma, sick recent ill contacts. Or known exposure to COVID-19. No prior admission for review. No medication listed at time of admission for reconciliation. Advanced care planning conducted in the emergency department. Case management consulted for discharge planning. (1) CVA (cerebral vascular accident) -Patient has right upper extremity weakness -CT head was negative. MRI showed subacute left basal ganglia infarction evolving of the left coronary radiata -Neurology consulted recommend dual antiplatelet therapy, and statin -Evaluated by PT OT and recommended acute rehab (2) Obesity hypoventilation syndrome Current Visit: Yes Status: Acute Plan to address problem: Supplemental oxygen, pulse oximetry, pulmonary toilet, CPAP nightly. (3) Hypertension Patient is on amlodipine (4) DVT prophylaxis Current Visit: Yes Status: Acute Plan to address problem: SCD to bilateral lower extremities while in bed. (5) Advance care planning Current Visit: Yes Status: Acute Plan to address problem: Disease education conducted, patient is full code, prognosis discussed, patient acknowledges understanding and agreement with care plan. Patient was evaluated by neurology PT OT evaluated and recommended acute rehab. Patient is medically stable and discharged to acute rehab. . Disposition: [id number]PT RE[facility]AB FACILITY Time spent for discharge: 32 minutes - Discharge Diagnoses (1) CVA (cerebral vascular accident) Status: Acute Qualifiers: Precerebral and cerebral artery: middle cerebral artery Laterality of affected vessel: right (2) Hypertension Status: Acute Qualifiers: Hypertension type: essential hypertension Qualified Code(s): I10 - Essential (primary) hypertension (3) Obesity hypoventilation syndrome Status: Chronic Core Measure Documentation - Palliative Care Palliative Care/ Comfort Measures: Not Applicable - Core Measures Any of the following diagnoses?: none - Stroke Discharge Requirements Statin for LDL = or >70 mg/dl on DC: Yes Anticoag for atrial fib/atrial flutter: Not Applicable Antithrombotic for ischemic stroke: Yes Exam - Physical Exam Narrative exam: Not in cardiopulmonary distress. The patient is obese Vital signs as documented. Head exam is unremarkable. No scleral icterus . Neck is without jugular venous distension, thyromegaly, or carotid bruits. Lungs are clear to auscultation. Cardiac exam reveals regular rate and Rhythm. Abdominal exam reveals normal bowel sounds, nontender, no organomegaly. Extremities are nonedematous and both femoral and pedal pulses are normal. 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 Mild weakness of the right lower extremity - Constitutional Vitals: Temp Pulse Resp BP Pulse Ox 98.6 F 84 22 153/95 96 10/21/19 11:02 10/21/19 11:02 10/21/19 11:02 10/21/19 11:02 10/21/19 11:02 Plan Activity: no restrictions Weight Bearing Status: Full Weight Bearing Diet: low salt Follow up with: PRIMARY CAREMD [Primary Care Provider] - 7 Days Prescriptions: AtorvaSTATin [Lipitor] 40 mg PO QHS #30 tablet Aspirin [Aspirin BABY CHEW TAB] 81 mg PO QDAY #30 tab.chew Clopidogrel [Plavix] 75 mg PO QDAY #30 tablet Other Discharge Orders: Home Health Care (Amb) Location: None Selected Occupational Therapy (Amb) Location: None Selected Physicial Therapy (Amb) Location: None Selected Speech Therapy (Amb) Location: None Selected
== END 2019-10-21 16:59 | DRG 65 ==
LOC: ED 14:24 → 3A 16:43 → OBSVTOIN 10-20 13:15
PROVIDERS: ADMIT Internal Medicine; ATTEND Internal Medicine
PROC: 5A09357 Assistance with Respiratory Ventilation, Less than 24 Consecutive Hours, Continuous Positive Airway Pressure (ICD-10-PCS; principal; 2019-10-16)
PROC: 5A09357 Assistance with Respiratory Ventilation, Less than 24 Consecutive Hours, Continuous Positive Airway Pressure (ICD-10-PCS; 2019-10-17)
PROC: 5A09357 Assistance with Respiratory Ventilation, Less than 24 Consecutive Hours, Continuous Positive Airway Pressure (ICD-10-PCS; 2019-10-18)
DX: I63.9 Cerebral infarction, unspecified (principal); E66.2 Morbid (severe) obesity with alveolar hypoventilation; Z68.41 Body mass index [BMI] 40.0-44.9, adult; G81.91 Hemiplegia, unspecified affecting right dominant side; I10 Essential (primary) hypertension; J45.909 Unspecified asthma, uncomplicated; Z71.3 Dietary counseling and surveillance; Z83.3 Family history of diabetes mellitus; Z82.49 Family history of ischemic heart disease and other diseases of the circulatory system
CPT/HCPCS: 36415; 70450; 70544; 70547; 70551; 80048; 80061; 82962; 84484; 85025; 85610; 85670; 85730; 93005; 93306; 93880; 94660; G0378; A9270-GY